=== PATIENT | male | born 1965 | race Caucasian/White ===

== ENCOUNTER 2020-06-09 11:52 | Outpatient (REF) | payer BC, SELFPAY | END 2020-06-09 11:53 | disposition home or self-care (01) | LOC: HO.LAB 11:52 | PROVIDERS: PCP Internal Medicine; Visit Provider Internal Medicine | DX: Z20.828 Contact with and (suspected) exposure to other viral communicable diseases (principal) | CPT/HCPCS: 87635 ==

== ENCOUNTER 2020-06-27 08:56 | Outpatient (REF) | payer BC, SELFPAY | END 2020-06-27 08:57 | disposition home or self-care (01) | LOC: HO.LAB 08:56 | PROVIDERS: PCP Internal Medicine; Visit Provider Internal Medicine | DX: Z20.828 Contact with and (suspected) exposure to other viral communicable diseases (principal) | CPT/HCPCS: U0003 ==

== ENCOUNTER 2020-09-29 06:04 | Outpatient (REF) | payer BC, SELFPAY ==
[2020-09-29 07:00] LABS: MANUAL DIFF FLAG NO
[2020-09-29 07:06] LABS: Glucose Urine UA NEG (NEG); Leukocyte Esterase Urine NEG (NEG); Nitrite Urine NEG (NEG); PH 5.5 (5.0-8.0); Specific Gravity - Urine >= 1.030 (1.005-1.025); Urine Blood NEG (NEG); Urine Ketones NEG (NEG); Urine Protein NEG (NEG-TRACE)
[2020-09-29 07:11] LABS: Appearance Urine CLEAR; Color Urine YELLOW
[2020-09-29 07:12] LABS: Basophils Percent Auto 0.6 % (0-2); Eosinophils Absolute Auto 0.2 X10*3/uL (0.0-0.4); Eosinophils Percent Auto 4.2 % (0-4); Hematocrit 40.7 % (42-52); Hemoglobin 13.5 g/dl (14.0-18.0); Imm Gran Abs Auto 0.02 X10*3/uL (0.00-0.03); Imm Gran Pct Auto 0.4 % (0.0-0.4); Lymphocytes Absolute Auto 1.7 X10*3/uL (1.2-4.9); Lymphocytes Percent Auto 33.4 % (20-40); Mean Corpuscular HGB Conc 33.2 g/dl (31.0-36.0); Mean Corpuscular Hemoglobin 29.9 pg (27.0-33.0); Mean Corpuscular Volume 90.2 fL (80-98); Mean Platelet Volume 9.4 fL (9.4-12.4); Monocytes Absolute Auto 0.4 X10*3/uL (0.1-1.2); Neutrophils Absolute Auto 2.7 X10*3/uL (2.0-8.3); Neutrophils Percent Auto 53.4 % (45-73); Platelet Count 328 X10*3/uL (160-400); Red Blood Count 4.51 X10*6/uL (4.60-5.80); Red Cell Distribution Width 11.9 % (11.0-16.0)
[2020-09-29 07:42] LABS: Alanine Aminotransferase 15 U/L (0-40); Albumin Level 4.5 g/dL (3.5-5.0); Alkaline Phosphatase 55 U/L (39-117); Anion Gap 12 (12-20); Aspartate Amino Transferase 14 U/L (5-37); Bilirubin Total 1.4 mg/dL (0.0-1.0); Blood Urea Nitrogen 16 mg/dL (9-16); Calcium 9.4 mg/dL (8.4-10.2); Carbon Dioxide 28 mmol/L (22-29); Chloride 106 mmol/L (96-108); Cholesterol 162 mg/dL; Estimated Glomerular Filt Rate > 60; Glucose Fasting 101 mg/dL (60-99); HDL Cholesterol 44 mg/dL; LDL Cholesterol Calculated 101 mg/dl; Potassium 4.8 mmol/L (3.3-5.1); Sodium 141 mmol/L (135-145); Total Protein 6.9 g/dL (6.5-8.0); Triglycerides 86 mg/dL
[2020-09-29 07:52] LABS: TSH reflex Free T4 3.09 uIU/mL (0.32-4.0)
[2020-09-29 08:42] LABS: SARS COV2 IgG Negative (Negative)
== END 2020-09-29 06:05 | disposition home or self-care (01) ==
LOC: HO.LAB 06:04
PROVIDERS: Visit Provider Internal Medicine
DX: E78.5 Hyperlipidemia, unspecified (principal); R73.01 Impaired fasting glucose; K80.20 Calculus of gallbladder without cholecystitis without obstruction; J45.909 Unspecified asthma, uncomplicated; K21.9 Gastro-esophageal reflux disease without esophagitis; N45.1 Epididymitis; E66.3 Overweight; Z01.84 Encounter for antibody response examination
CPT/HCPCS: 36415; 80053; 80061; 81003; 84443; 85025; 86769

== ENCOUNTER → 2020-10-19 09:18 | Outpatient (BNVA) | payer BC, SELFPAY | PROVIDERS: PCP Internal Medicine; Visit Provider Urology ==

== ENCOUNTER → 2020-11-02 10:09 | Outpatient (BNVA) | payer BC, SELFPAY | PROVIDERS: PCP Internal Medicine; Visit Provider Urology ==

== ENCOUNTER → 2020-12-02 15:23 | Outpatient (BNVA) | payer BC, SELFPAY | PROVIDERS: PCP Internal Medicine; Visit Provider Urology ==

== ENCOUNTER → 2021-01-04 15:20 | Outpatient (BNVA) | payer BC, SELFPAY | PROVIDERS: PCP Internal Medicine; Visit Provider Urology ==

== ENCOUNTER 2021-01-26 08:49 | Outpatient (REF) | payer BC, SELFPAY ==
[2021-01-26 09:34] LABS: MANUAL DIFF FLAG NO
[2021-01-26 10:04] LABS: Basophils Percent Auto 0.7 % (0-2); Eosinophils Absolute Auto 0.1 X10*3/uL (0.0-0.4); Eosinophils Percent Auto 2.2 % (0-4); Hematocrit 39.3 % (42-52); Hemoglobin 13.3 g/dl (14.0-18.0); Imm Gran Abs Auto 0.04 X10*3/uL (0.00-0.03); Imm Gran Pct Auto 0.7 % (0.0-0.4); Lymphocytes Absolute Auto 1.5 X10*3/uL (1.2-4.9); Lymphocytes Percent Auto 26.1 % (20-40); Mean Corpuscular HGB Conc 33.8 g/dl (31.0-36.0); Mean Corpuscular Hemoglobin 30.1 pg (27.0-33.0); Mean Corpuscular Volume 88.9 fL (80-98); Mean Platelet Volume 9.2 fL (9.4-12.4); Monocytes Absolute Auto 0.5 X10*3/uL (0.1-1.2); Monocytes Percent Auto 8.4 % (2-11); Neutrophils Absolute Auto 3.6 X10*3/uL (2.0-8.3); Neutrophils Percent Auto 61.9 % (45-73); Platelet Count 311 X10*3/uL (160-400); Red Blood Count 4.42 X10*6/uL (4.60-5.80); Red Cell Distribution Width 12.1 % (11.0-16.0); White Blood Count 5.8 X10*3/uL (4.8-10.8)
[2021-01-26 10:21] LABS: Alanine Aminotransferase 24 U/L (0-40); Albumin Level 4.4 g/dL (3.5-5.0); Alkaline Phosphatase 55 U/L (39-117); Anion Gap 11 (12-20); Aspartate Amino Transferase 18 U/L (5-37); Bilirubin Total 1.7 mg/dL (0.0-1.0); Blood Urea Nitrogen 15 mg/dL (9-16); Calcium 9.4 mg/dL (8.4-10.2); Carbon Dioxide 27 mmol/L (22-29); Chloride 106 mmol/L (96-108); Cholesterol 156 mg/dL; Estimated Glomerular Filt Rate > 60; Glucose Fasting 102 mg/dL (60-99); HDL Cholesterol 45 mg/dL; LDL Cholesterol Calculated 93 mg/dl; Potassium 4.5 mmol/L (3.3-5.1); Sodium 139 mmol/L (135-145); Total Protein 6.7 g/dL (6.5-8.0); Triglycerides 90 mg/dL
[2021-01-26 10:28] LABS: TSH reflex Free T4 2.26 uIU/mL (0.32-4.0)
== END 2021-01-26 08:50 | disposition home or self-care (01) ==
LOC: HO.LAB 08:49
PROVIDERS: PCP Internal Medicine; Visit Provider Internal Medicine
DX: E78.00 Pure hypercholesterolemia, unspecified (principal); R73.01 Impaired fasting glucose; I10 Essential (primary) hypertension
CPT/HCPCS: 36415; 80053; 80061; 84443; 85025

== ENCOUNTER 2021-05-29 11:20 | Outpatient (REF) | payer BC, SELFPAY ==
[2021-05-29 12:41] LABS: Influenza A PCR NEGATIVE (Negative); Influenza B PCR NEGATIVE (Negative); Resp Syncy Virus RNA Qual PCR NEGATIVE (Negative); SARS COV2 PCR INHOUSE NEGATIVE (Negative)
== END 2021-05-29 11:21 | disposition home or self-care (01) ==
LOC: HO.LNP 11:20
PROVIDERS: Visit Provider Family Medicine
DX: Z20.822 Contact with and (suspected) exposure to COVID-19 (principal); R09.81 Nasal congestion
CPT/HCPCS: 0241U

== ENCOUNTER 2021-06-28 06:46 | Outpatient (REF) | payer BC, SELFPAY ==
[2021-06-28 08:11] LABS: Alanine Aminotransferase 22 U/L (0-40); Albumin Level 4.6 g/dL (3.5-5.0); Alkaline Phosphatase 66 U/L (39-117); Anion Gap 10 (12-20); Aspartate Amino Transferase 16 U/L (5-37); Bilirubin Total 1.5 mg/dL (0.0-1.0); Blood Urea Nitrogen 16 mg/dL (9-16); Calcium 9.5 mg/dL (8.4-10.2); Carbon Dioxide 28 mmol/L (22-29); Chloride 105 mmol/L (96-108); Cholesterol 175 mg/dL; Estimated Glomerular Filt Rate > 60; Glucose Fasting 107 mg/dL (60-99); HDL Cholesterol 45 mg/dL; LDL Cholesterol Calculated 107 mg/dl; Potassium 4.2 mmol/L (3.3-5.1); Sodium 139 mmol/L (135-145); Triglycerides 118 mg/dL
[2021-06-28 08:35] LABS: Prostate Specific Antigen 0.27 ng/mL (<0.05-4.0)
== END 2021-06-28 06:47 | disposition home or self-care (01) ==
LOC: HO.LAB 06:46
PROVIDERS: PCP Internal Medicine; Visit Provider Internal Medicine
DX: Z12.5 Encounter for screening for malignant neoplasm of prostate (principal); N40.0 Benign prostatic hyperplasia without lower urinary tract symptoms; E78.00 Pure hypercholesterolemia, unspecified
CPT/HCPCS: 36415; 80053; 80061; 84153

== ENCOUNTER → 2021-07-14 09:58 | Outpatient (BNVA) | payer BC, SELFPAY | PROVIDERS: PCP Internal Medicine; Visit Provider Urology ==

== ENCOUNTER 2021-11-03 06:41 | Outpatient (REF) | payer BC, SELFPAY ==
[2021-11-03 07:16] LABS: MANUAL DIFF FLAG NO
[2021-11-03 07:33] LABS: Appearance Urine CLEAR; Color Urine YELLOW; Glucose Urine UA NEG (NEG); Leukocyte Esterase Urine NEG (NEG); Nitrite Urine NEG (NEG); PH 5.5 (5.0-8.0); Specific Gravity - Urine >= 1.030 (1.005-1.025); Urine Blood NEG (NEG); Urine Ketones NEG (NEG); Urine Protein NEG (NEG-TRACE)
[2021-11-03 07:36] LABS: Basophils Percent Auto 0.5 % (0-2); Eosinophils Absolute Auto 0.2 X10*3/uL (0.0-0.4); Eosinophils Percent Auto 3.6 % (0-4); Hematocrit 43.9 % (42.0-52.0); Hemoglobin 14.3 g/dl (14.0-18.0); Imm Gran Abs Auto 0.04 X10*3/uL (0.00-0.03); Imm Gran Pct Auto 0.7 % (0.0-0.4); Immature Retic Fraction 12.6 % (2.3-13.4); Lymphocytes Absolute Auto 1.9 X10*3/uL (1.2-4.9); Lymphocytes Percent Auto 32.3 % (20-40); Mean Corpuscular HGB Conc 32.6 g/dl (31.0-36.0); Mean Corpuscular Hemoglobin 29.2 pg (27.0-33.0); Mean Corpuscular Volume 89.6 fL (80.0-98.0); Mean Platelet Volume 9.5 fL (9.4-12.4); Monocytes Absolute Auto 0.5 X10*3/uL (0.1-1.2); Monocytes Percent Auto 8.1 % (2-11); Neutrophils Absolute Auto 3.2 x10*3/uL (2.0-8.3); Neutrophils Percent Auto 54.8 % (45-73); Platelet Count 329 X10*3/uL (160-400); Red Cell Distribution Width 12.1 % (11.0-16.0); Retic HGB Equivalent 33.3 pg (30.0-35.0); Reticulocyte Percent 3.2 % (0.5-1.8); Reticulocytes Absolute 0.157 X10*6/uL (0.026-0.095); White Blood Count 5.9 X10*3/uL (4.8-10.8)
[2021-11-03 07:59] LABS: Alanine Aminotransferase 17 U/L (0-40); Albumin Level 4.6 g/dL (3.5-5.0); Alkaline Phosphatase 53 U/L (39-117); Anion Gap 12 (12-20); Aspartate Amino Transferase 17 U/L (5-37); Bilirubin Total 1.4 mg/dL (0.0-1.0); Blood Urea Nitrogen 22 mg/dL (9-16); Calcium 9.7 mg/dL (8.4-10.2); Carbon Dioxide 25 mmol/L (22-29); Chloride 106 mmol/L (96-108); Cholesterol 165 mg/dL; Estimated Glomerular Filt Rate > 60; Glucose Fasting 110 mg/dL (60-99); HDL Cholesterol 42 mg/dL; Iron 104 mcg/dL (45-160); LDL Cholesterol Calculated 103 mg/dl; Percent Iron Saturation 32 % (15-50); Potassium 4.9 mmol/L (3.3-5.1); Sodium 138 mmol/L (135-145); Total Iron Binding Capacity 323 mcg/dL (228-428); Total Protein 7.3 g/dL (6.5-8.0); Triglycerides 103 mg/dL; Unsaturated Iron Binding 219 ug/dL
[2021-11-03 08:13] LABS: Prostate Specific Antigen 0.29 ng/mL (<0.05-4.0); TSH reflex Free T4 2.82 uIU/mL (0.32-4.0); Vitamin D 25-OH Total 37.8 ng/mL (>30)
== END 2021-11-03 06:42 | disposition home or self-care (01) ==
LOC: HO.LAB 06:41
PROVIDERS: Urology; PCP Internal Medicine; Visit Provider Internal Medicine
DX: Z12.5 Encounter for screening for malignant neoplasm of prostate (principal); E78.00 Pure hypercholesterolemia, unspecified; E55.9 Vitamin D deficiency, unspecified; I10 Essential (primary) hypertension; D50.9 Iron deficiency anemia, unspecified; N13.8 Other obstructive and reflux uropathy; N40.1 Benign prostatic hyperplasia with lower urinary tract symptoms; N41.1 Chronic prostatitis
CPT/HCPCS: 36415; 80053; 80061; 81003; 82306; 83540; 84153; 84443; 85025; 85045

== ENCOUNTER 2022-07-03 06:27 | Outpatient (REF) | payer BC, SELFPAY ==
[2022-07-03 06:36] LABS: MANUAL DIFF FLAG NO
[2022-07-03 07:31] LABS: Basophils Absolute Auto 0.1 X10*3/uL (0.0-0.2); Basophils Percent Auto 0.6 % (0-2); Eosinophils Absolute Auto 0.2 X10*3/uL (0.0-0.4); Hematocrit 42.6 % (42.0-52.0); Hemoglobin 13.7 g/dl (14.0-18.0); Imm Gran Abs Auto 0.09 X10*3/uL (0.00-0.03); Imm Gran Pct Auto 1.1 % (0.0-0.4); Lymphocytes Absolute Auto 2.3 X10*3/uL (1.2-4.9); Lymphocytes Percent Auto 27.7 % (20-40); Mean Corpuscular HGB Conc 32.2 g/dl (31.0-36.0); Mean Corpuscular Hemoglobin 29.5 pg (27.0-33.0); Mean Corpuscular Volume 91.6 fL (80.0-98.0); Mean Platelet Volume 9.3 fL (9.4-12.4); Monocytes Absolute Auto 0.6 X10*3/uL (0.1-1.2); Monocytes Percent Auto 7.9 % (2-11); Neutrophils Absolute Auto 4.8 x10*3/uL (2.0-8.3); Neutrophils Percent Auto 59.7 % (45-73); Platelet Count 334 X10*3/uL (160-400); Red Blood Count 4.65 X10*6/uL (4.60-5.80); Red Cell Distribution Width 12.2 % (11.0-16.0); White Blood Count 8.1 X10*3/uL (4.8-10.8)
[2022-07-03 08:02] LABS: Appearance Urine Clear; Color Urine Yellow; Glucose Urine UA Negative (Negative); Leukocyte Esterase Urine Negative (Negative); Nitrite Urine Negative (Negative); PH 5.5 (5.0-9.0); Specific Gravity - Urine >= 1.030 (1.005-1.025); Urine Blood Negative (Negative); Urine Ketones Negative (Negative); Urine Protein Negative (Neg-Trace)
[2022-07-03 10:34] LABS: Hemoglobin A1c % 5.2 %
[2022-07-03 10:35] LABS: Estimated Average Glucose 103 mg/dL
[2022-07-03 11:18] LABS: Alanine Aminotransferase 20 U/L (0-40); Albumin Level 4.5 g/dL (3.5-5.0); Alkaline Phosphatase 64 U/L (39-117); Anion Gap 16 (12-20); Aspartate Amino Transferase 17 U/L (5-37); Bilirubin Total 1.1 mg/dL (0.0-1.0); Blood Urea Nitrogen 19 mg/dL (9-16); Calcium 8.8 mg/dL (8.4-10.2); Carbon Dioxide 23 mmol/L (22-29); Chloride 107 mmol/L (96-108); Cholesterol 172 mg/dL; Estimated Glomerular Filt Rate > 60; HDL Cholesterol 45 mg/dL; LDL Cholesterol Calculated 106 mg/dl; Potassium 4.1 mmol/L (3.3-5.1); Sodium 142 mmol/L (135-145); Total Protein 7.1 g/dL (6.5-8.0); Triglycerides 108 mg/dL
[2022-07-03 11:40] LABS: TSH reflex Free T4 3.26 uIU/mL (0.32-4.0); Vitamin D 25-OH Total 30.9 ng/mL (>30)
[2022-07-03 12:43] LABS: Glucose Fasting 100 mg/dL (60-99)
== END 2022-07-03 06:28 | disposition home or self-care (01) ==
LOC: HO.LAB 06:27
PROVIDERS: PCP Internal Medicine; Visit Provider Internal Medicine
DX: E55.9 Vitamin D deficiency, unspecified (principal); R30.0 Dysuria; E78.00 Pure hypercholesterolemia, unspecified; R73.01 Impaired fasting glucose; I10 Essential (primary) hypertension
CPT/HCPCS: 36415; 80053; 80061; 81003; 82306; 83036; 84443; 85025

== ENCOUNTER 2022-07-04 16:26 | Outpatient (REF) | payer BC, SELFPAY ==
--- NOTE | ~2022-07-04 | XR_ITS ---
EXAMINATION: XR CHEST CLINICAL INFORMATION: Other specified symptoms in size involving the circulatory system. COMPARISON: None TECHNIQUE: 2 views of the chest were obtained. FINDINGS: No significant abnormality is noted involving the heart, lungs, mediastinum, bony thorax or soft tissues. XR/XR chest 2V IMPRESSION: Unremarkable examination.
== END 2022-07-04 16:27 | disposition home or self-care (01) ==
LOC: HO.XRAY 16:26
PROVIDERS: Visit Provider Internal Medicine
DX: R05.9 Cough, unspecified (principal); R09.89 Other specified symptoms and signs involving the circulatory and respiratory systems
CPT/HCPCS: 71046

== ENCOUNTER 2022-10-25 09:51 | Outpatient (REF) | payer BC, SELFPAY ==
[2022-10-25 10:39] LABS: Appearance Urine Clear; Color Urine Yellow; Glucose Urine UA Negative (Negative); Leukocyte Esterase Urine Negative (Negative); Nitrite Urine Negative (Negative); PH 5.5 (5.0-9.0); Specific Gravity - Urine 1.025 (1.005-1.025); Urine Blood Negative (Negative); Urine Ketones Trace mg/dL (Negative); Urine Protein Negative (Neg-Trace)
[2022-10-25 11:29] LABS: Alanine Aminotransferase 18 U/L (0-40); Albumin Level 4.4 g/dL (3.5-5.0); Alkaline Phosphatase 61 U/L (39-117); Anion Gap 11 (12-20); Aspartate Amino Transferase 15 U/L (5-37); Bilirubin Total 1.6 mg/dL (0.0-1.0); Blood Urea Nitrogen 13 mg/dL (9-16); Calcium 9.2 mg/dL (8.4-10.2); Carbon Dioxide 28 mmol/L (22-29); Chloride 106 mmol/L (96-108); Cholesterol 170 mg/dL; Estimated Glomerular Filt Rate > 60; Glucose Fasting 100 mg/dL (60-99); HDL Cholesterol 44 mg/dL; LDL Cholesterol Calculated 106 mg/dl; Potassium 4.9 mmol/L (3.3-5.1); Sodium 140 mmol/L (135-145); Total Protein 6.7 g/dL (6.5-8.0); Triglycerides 103 mg/dL
[2022-10-25 11:36] LABS: Vitamin D 25-OH Total 33.1 ng/mL (>30)
[2022-11-02 16:44] LABS: Testosterone, Free 55.4 pg/mL (35.0-155.0); Testosterone, Total 495 ng/dL (250-1100)
== END 2022-10-25 09:52 | disposition home or self-care (01) ==
LOC: HO.LAB 09:51
PROVIDERS: PCP Internal Medicine; Visit Provider Internal Medicine
DX: E78.00 Pure hypercholesterolemia, unspecified (principal); R30.0 Dysuria; E55.9 Vitamin D deficiency, unspecified; N52.9 Male erectile dysfunction, unspecified
CPT/HCPCS: 36415; 80053; 80061; 81003; 82306; 84402; 84403; 84443

== ENCOUNTER 2023-11-15 08:45 | Outpatient (REF) | payer BC, SELFPAY ==
[2023-11-15 08:57] LABS: MANUAL DIFF FLAG NO
[2023-11-15 09:36] LABS: Basophils Absolute Auto 0.1 X10*3/uL (0.0-0.2); Basophils Percent Auto 0.7 % (0-2); Eosinophils Absolute Auto 0.2 X10*3/uL (0.0-0.4); Eosinophils Percent Auto 2.4 % (0-4); Hematocrit 43.8 % (42.0-52.0); Hemoglobin 14.6 g/dl (14.0-18.0); Imm Gran Abs Auto 0.11 X10*3/uL (0.00-0.03); Imm Gran Pct Auto 1.5 % (0.0-0.4); Lymphocytes Absolute Auto 2.1 X10*3/uL (1.2-4.9); Lymphocytes Percent Auto 28.9 % (20-40); Mean Corpuscular HGB Conc 33.3 g/dl (31.0-36.0); Mean Corpuscular Hemoglobin 29.6 pg (27.0-33.0); Mean Corpuscular Volume 88.7 fL (80.0-98.0); Mean Platelet Volume 8.8 fL (9.4-12.4); Monocytes Absolute Auto 0.5 X10*3/uL (0.1-1.2); Monocytes Percent Auto 6.8 % (2-11); Neutrophils Absolute Auto 4.4 x10*3/uL (2.0-8.3); Neutrophils Percent Auto 59.7 % (45-73); Platelet Count 373 X10*3/uL (160-400); Red Blood Count 4.94 X10*6/uL (4.60-5.80); Red Cell Distribution Width 12.2 % (11.0-16.0); White Blood Count 7.4 X10*3/uL (4.8-10.8)
[2023-11-15 10:10] LABS: Alanine Aminotransferase 23 U/L (0-40); Albumin Level 4.6 g/dL (3.5-5.0); Alkaline Phosphatase 73 U/L (39-117); Anion Gap 10 (12-20); Aspartate Amino Transferase 17 U/L (5-37); Bilirubin Total 1.1 mg/dL (0.0-1.0); Blood Urea Nitrogen 15 mg/dL (9-16); Calcium 9.8 mg/dL (8.4-10.2); Carbon Dioxide 30 mmol/L (22-29); Chloride 105 mmol/L (96-108); Cholesterol 167 mg/dL (<200); Estimated Glomerular Filt Rate > 60; Glucose Fasting 103 mg/dL (60-99); HDL Cholesterol 39 mg/dL (>40); LDL Cholesterol Calculated 102 mg/dL (<100); Potassium 4.3 mmol/L (3.3-5.1); Sodium 141 mmol/L (135-145); Total Protein 7.5 g/dL (6.5-8.0); Triglycerides 134 mg/dL (<150)
[2023-11-15 10:27] LABS: Vitamin D 25-OH Total 36.1 ng/mL (>30)
== END 2023-11-15 08:46 | disposition home or self-care (01) ==
LOC: HO.LAB 08:45
PROVIDERS: PCP Internal Medicine; Visit Provider Internal Medicine
DX: J45.909 Unspecified asthma, uncomplicated (principal); D64.9 Anemia, unspecified; E78.00 Pure hypercholesterolemia, unspecified; I10 Essential (primary) hypertension; E55.9 Vitamin D deficiency, unspecified
CPT/HCPCS: 36415; 80053; 80061; 82306; 85025

== ENCOUNTER 2023-11-18 15:49 | Outpatient (AMB) | payer BC, SELFPAY ==
--- NOTE | 2023-11-18 15:53 | MHC.PC.OV ---
Vital Signs 11/18/23 15:55 Height 5 ft 7 in Weight 173 lb BMI 27.1 BP 120/78 Blood Pressure Location Lt brachial Position Sitting Pulse 58 Pulse Source Pulse Oximeter Pulse Oximetry (%) 96 Oxygen Delivery Method Room Air Intake Visit Reasons: hyperlipidemia Intake Note: Patient is here to follow up on Hperlipidemia, HTN, IFG. 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 Accompanied by: Self / Same As Patient Allergies No Known Allergies Allergy (Verified 11/18/23 16:32) Medication List - Last Reconciled 11/18/23 by Jamal Landa MD atorvastatin 20 mg PO DAILY budesonide-formoterol 80-4.5 mcg/actuation 2 puffs PO BID cholecalciferol (vitamin D3) 50 mcg PO DAILY 90 days omeprazole 20 mg PO DAILY Tobacco use date assessed: 11/18/23 Dental Screening Dental Screen Date: 11/18/23 Did you have a dental visit in the last 12 months?: No Did you have a dental problem in the last 6 months where you did not have access to dental care?: No Was dental information given to patient?: Patient has dentist HPI hyperlipidemia HPI Details Patient comes in today for his follow up visit States that he feels okay Denies any headaches or dizziness Denies any chest pains, no SOB No nausea/vomiting, no abdominal pain No change in bowel habits noted Had his follow up labs done a few days ago - to discuss his results [facility] Medical History Erectile dysfunction Vitamin D deficiency Bojorquez's esophagus Normal colonoscopy (~09/26/16) Rupture of left kidney (~1981) Depression Asthma Overweight (BMI 25.0-29.9) Testicular discomfort Pure hypercholesterolemia Benign essential hypertension Impaired fasting glucose Surgical History History of esophagogastroduodenoscopy (EGD) History of appendectomy History of ear surgery Social History Housing: House Alcohol intake: current Alcohol intake frequency: a few times a week Patient Tobacco Use Status: Never used Tobacco e-Cigarette/Vaping Use: Never Used Second Hand Smoke Exposure: Yes service: No Current occupational status: employed Cognitive needs: No Hearing needs: No Vision needs: Yes (Reading Glasses) Questionnaire PHQ-9 Over the last 2 weeks, how often have you been bothered by any of the following problems? 1. Little interest or pleasure in doing things: not at all 2. Feeling down, depressed, or hopeless: not at all 3. Trouble falling or staying asleep, or sleeping too much: not at all 4. Feeling tired or having little energy: not at all 5. Poor appetite or overeating: not at all 6. Feeling bad about yourself - or that you are a failure or have let yourself or your family down: not at all 7. Trouble concentrating on things, such as reading the newspaper or watching television: not at all 8. Moving or speaking so slowly that other people could have noticed. Or the opposite - being so fidgety or restless that you have been moving around a lot more than usual: not at all 9. Thoughts that you would be better off or of hurting yourself in some way: not at all Total score: 0 Depression Screening Interpretation: Negative Depression Screening Done: Yes 49669 - PHQ-9 Billing: Yes Source: Developed by Drs. Angel Cortez, Nitza Langford, Javier Leal and colleagues, with an educational bernarda from [employer]. Thrive Questionnaire Date Thrive assessed: 11/18/23 I am a: Patient What is your living situation today?: I have a steady place to live Within the past 12 months, did the food you bought not last and you didn't have the money to get more?: Never true Within the past 12 months, did you worry whether your food would run out before you got money to buy more?: Never true Do you have trouble paying for medicines?: No Do you have trouble getting transportation to medical appointments?: No Do you have trouble paying your heating and electricity bill?: No Do you have trouble taking care of your child, family member or friend?: No Do you have trouble with day-to-day activities such as bathing, preparing meals, shopping, managing finances, etc.?: No Are you currently unemployed and looking for a job?: No Are you interested in more education?: No Currently or been in a relationship where the following occur: no concerns reported THRIVE Score: 0 AUDIT C Alcohol Use Questionnaire (AUDIT-C) 1. How often do you have a drink containing alcohol?: Monthly or less 2. How many drinks containing alcohol do you have on a typical day when you are drinking?: 1 or 2 Total Score: 1 Score Reviewed/Action Taken: Yes QUE-7 AMB Questionnaire QUE-7 Date QUE - 7 assessed: 11/18/23 Feeling nervous, anxious, or on edge: 0 = Not at all Not being able to stop or control worryin = Not at all Worrying too much about different things: 0 = Not at all Trouble relaxin = Not at all Being so restless that it is hard to sit still: 0 = Not at all Becoming easily annoyed or irritable: 0 = Not at all Feeling afraid as if something awful might happen: 0 = Not at all Total QUE-7 score (0-4 normal; 5-9 mild; 10-14 moderate; 15-21 severe): 0 Source: Developed by Drs. Angel Cortez, Nitza Langford, Javier Leal and colleagues, with an educational bernarda from [employer]. Review of Systems Const Denies fatigue, Denies fever(s) and Denies headache(s) ENT Denies dysphagia, Denies dizziness, Denies otalgia, Denies headache(s), Denies odynophagia and Denies sore throat Card Denies chest pain, Denies palpitations and Denies dyspnea Resp Denies cough and Denies dyspnea GI Denies abdominal pain, Denies constipation, Denies dysphagia, Denies heartburn, Denies diarrhea, Denies nausea, Denies odynophagia and Denies vomiting Denies dysuria, Denies nocturia and Denies urinary frequency Musc Reports arthralgias (occasionally, in the knees) Skin/Breast Denies rash Neuro Denies dizziness and Denies headache(s) Endo Denies fatigue and Denies palpitations Physical exam (Primary Care) Vital Signs: Last Vital Signs Pulse 58 11/18/23 15:55 BP 120/78 11/18/23 15:55 Pulse Ox 96 11/18/23 15:55 Oxygen Delivery Method Room Air 11/18/23 15:55 BMI result Body Mass Index 27.1 Tobacco/Smoking Status: Tobacco use Status Tobacco use date assessed 11/18/23 11/18/23 16:03 Patient Tobacco Use Status Never used Tobacco 11/18/23 16:03 e-Cigarette/Vaping Use Never Used 11/18/23 16:03 PHQ-9: PHQ-9 Score PHQ-9: Total score 0 11/18/23 16:13 Depression Screening Interpretation: Negative Thrive Assessment: Date of Thrive Assessment Date Thrive assessed 11/18/23 11/18/23 16:03 Currently or been in a relationship where the following occur: no concerns reported Const General: no acute distress and alert HENMT Ears: TM's normal bilaterally and EAC's normal Throat: Yes posterior oropharynx normal and Yes tonsils normal (no TP congestion noted) Neck Neck: Yes no lymphadenopathy and Yes supple Thyroid: Thyroid normal Resp Auscultation: clear to auscultation bilaterally, no rales and no wheezes Cardio Rate: regular rate Rhythm: regular rhythm Heart sounds: no murmurs GI Palpation (GI): Soft to palpation and nontender Auscultation: normal bowel sounds General: Yes no CVA tenderness Back/Spine/Pelvis Back: no CVA tenderness Thoracic/Lumbar Spine: No lumbar spinal tenderness Skin Rashes: no rashes Extrem General: Yes no clubbing, cyanosis or edema Results AMB Hemoglobin A1c AMB Hemoglobin A1c 5.4 % Last Edit by ULISES Gunter on 11/18/23 16:14 Results Reviewed Results Reviewed: Laboratory Last Values Hgb A1c (Clinic) 5.4 % (4.0-6.0) 11/18/23 15:52 Laboratory Tests 11/15/23 11/15/23 11/18/23 08:56 08:56 15:52 WBC 7.4 Hgb 14.6 Hct 43.8 Plt Count 373 Sodium 141 Potassium 4.3 Creatinine 0.82 Estimated GFR > 60 Fasting Glucose 103 H Hgb A1c (Clinic) 5.4 Calcium 9.8 D AST 17 ALT 23 Triglycerides 134 Cholesterol 167 LDL Cholesterol, Calc 102 H HDL Cholesterol 39 L 25-OH Vitamin D Total 36.1 Assessment and Plan Assessment & Plan (1) Pure hypercholesterolemia: Code(s): E78.00 - Pure hypercholesterolemia, unspecified Plan: Results of his labs done a few days ago reviewed and discussed with patient Reinforced low cholesterol diet Continue Atorvastatin 20 mg QD Will recheck his labs and fasting lipids in 4 months for follow up (2) Benign essential hypertension: Code(s): I10 - Essential (primary) hypertension Plan: Reinforced low sodium diet - goal is systolic BP of 120 mm or less (3) Impaired fasting glucose: Code(s): R73.01 - Impaired fasting glucose Plan: In-office HgbA1c done today is at 5.4%; HgbA1c was normal at 5.2% when checked previously Reinforced low calorie diet/exercise as tolerated (4) Bojorquez's esophagus: Code(s): K22.70 - Bojorquez's esophagus without dysplasia Qualifiers: Bojorquez's esophagus type: without dysplasia Qualified Code(s): K22.70 - Bojorquez's esophagus without dysplasia Plan: EGD with biopsy done on 09/26/2016 and 02/22/[address] Cortés He was seen for follow up in May [address] Cortés and was advised to double up on his Omeprazole to 40 mg QD; he eventually underwent repeat EGD in January 2023, which came out negative Colonoscopy is not due until [address] Cortés as scheduled (5) Mild anemia: Code(s): D64.9 - Anemia, unspecified Plan: Anemia work ups done previously all came out normal Will continue to monitor his CBC regularly - will recheck CBC in 4 months for follow up (6) Asthma: Code(s): J45.909 - Unspecified asthma, uncomplicated Qualifiers: Asthma severity: mild Asthma persistence: persistent Asthma complication type: uncomplicated Qualified Code(s): J45.30 - Mild persistent asthma, uncomplicated Plan: Stable Chest x-rays done last year to evaluate his recurrent coughing back then came out normal; his cough has since resolved Continue Symbicort 80-4.5 mcg 2 inhalations BID and Albuterol HFA 2 puffs 4 times a day as needed (7) Vitamin D deficiency: Code(s): E55.9 - Vitamin D deficiency, unspecified Plan: Continue Vitamin D3 2000 units QD (8) Erectile dysfunction: Code(s): N52.9 - Male erectile dysfunction, unspecified Qualifiers: Erectile dysfunction type: unspecified Qualified Code(s): N52.9 - Male erectile dysfunction, unspecified Plan: Continue Tadalafil 5 mg QD PRN Testosterone level checked last year came back normal (9) Overweight (BMI 25.0-29.9): Code(s): E66.3 - Overweight Plan: Reinforced diet/exercise as tolerated/lose weight Plan Follow up with 4 months Orders: Orders Complete Blood Count Auto Diff 11/15/23 D64.9 - Anemia, unspecified, E78.00 - Pure hypercholesterolemia, unspecified, J45.909 - Unspecified asthma, uncomplicated Comprehensive [place]. Panel Fast 11/15/23 D64.9 - Anemia, unspecified, E78.00 - Pure hypercholesterolemia, unspecified, I10 - Essential (primary) hypertension, J45.909 - Unspecified asthma, uncomplicated Vitamin D 25-OH Total 11/15/23 E55.9 - Vitamin D deficiency, unspecified AMB Hemoglobin A1c Today R73.01 - Impaired fasting glucose Vitamin D 25-OH Total 4 Months E55.9 - Vitamin D deficiency, unspecified Lipid Panel 11/15/23 E78.00 - Pure hypercholesterolemia, unspecified Complete Blood Count Auto Diff 4 Months D64.9 - Anemia, unspecified Comprehensive [place]. Panel Fast 4 Months E78.00 - Pure hypercholesterolemia, unspecified Lipid Panel 4 Months E78.00 - Pure hypercholesterolemia, unspecified TSH reflex Free T4 4 Months E78.00 - Pure hypercholesterolemia, unspecified UA CC w/rflx Micro + Cult 4 Months R30.0 - Dysuria Coding Level of Care Code Est Pt Level 4 (70365) Diagnoses Pure hypercholesterolemia E78.00 Benign essential hypertension I10 Impaired fasting glucose R73.01 Bojorquez's esophagus without dysplasia K22.70 Bojorquez's esophagus type: without dysplasia Mild anemia D64.9 Mild persistent asthma without complication J45.30 Asthma severity: mild Asthma persistence: persistent Asthma complication type: uncomplicated Vitamin D deficiency E55.9 Erectile dysfunction, unspecified erectile dysfunction type N52.9 Erectile dysfunction type: unspecified Overweight (BMI 25.0-29.9) E66.3
[2023-11-18 15:55] VITALS: BP 120/78; PULSE 58; O2SAT 96; BMI 27.1
== END 2023-11-18 16:43 | disposition home or self-care (01) ==
PROVIDERS: PCP Internal Medicine; Visit Provider Internal Medicine
DX: E78.00 Pure hypercholesterolemia, unspecified (principal); I10 Essential (primary) hypertension; R73.01 Impaired fasting glucose; K22.70 Barrett's esophagus without dysplasia; D64.9 Anemia, unspecified; J45.30 Mild persistent asthma, uncomplicated; E55.9 Vitamin D deficiency, unspecified; N52.9 Male erectile dysfunction, unspecified; E66.3 Overweight
CPT/HCPCS: 83036; 99214

== ENCOUNTER 2024-03-18 06:19 | Outpatient (REF) | payer BC, SELFPAY ==
[2024-03-18 06:32] LABS: MANUAL DIFF FLAG NO
[2024-03-18 07:10] LABS: Basophils Absolute Auto 0.1 X10*3/uL (0.0-0.2); Eosinophils Absolute Auto 0.3 X10*3/uL (0.0-0.4); Eosinophils Percent Auto 3.8 % (0-4); Hematocrit 42.2 % (42.0-52.0); Hemoglobin 14.2 g/dl (14.0-18.0); Imm Gran Abs Auto 0.07 X10*3/uL (0.00-0.03); Lymphocytes Absolute Auto 2.2 X10*3/uL (1.2-4.9); Lymphocytes Percent Auto 32.1 % (20-40); Mean Corpuscular HGB Conc 33.6 g/dl (31.0-36.0); Mean Corpuscular Hemoglobin 30.2 pg (27.0-33.0); Mean Corpuscular Volume 89.8 fL (80.0-98.0); Mean Platelet Volume 9.1 fL (9.4-12.4); Monocytes Absolute Auto 0.6 X10*3/uL (0.1-1.2); Monocytes Percent Auto 8.2 % (2-11); Neutrophils Absolute Auto 3.7 x10*3/uL (2.0-8.3); Neutrophils Percent Auto 53.9 % (45-73); Platelet Count 298 X10*3/uL (160-400); Red Cell Distribution Width 12.2 % (11.0-16.0); White Blood Count 6.8 X10*3/uL (4.8-10.8)
[2024-03-18 07:38] LABS: Alanine Aminotransferase 20 U/L (0-40); Albumin Level 4.5 g/dL (3.5-5.0); Alkaline Phosphatase 57 U/L (39-117); Anion Gap 13 (12-20); Aspartate Amino Transferase 13 U/L (5-37); Bilirubin Total 1.2 mg/dL (0.0-1.0); Blood Urea Nitrogen 18 mg/dL (9-16); Calcium 9.8 mg/dL (8.4-10.2); Carbon Dioxide 26 mmol/L (22-29); Chloride 108 mmol/L (96-108); Cholesterol 171 mg/dL (<200); Estimated Glomerular Filt Rate > 60; Glucose Fasting 108 mg/dL (60-99); HDL Cholesterol 44 mg/dL (>40); LDL Cholesterol Calculated 91 mg/dL (<100); Potassium 4.3 mmol/L (3.3-5.1); Sodium 143 mmol/L (135-145); Total Protein 7.1 g/dL (6.5-8.0); Triglycerides 184 mg/dL (<150)
[2024-03-18 07:55] LABS: TSH reflex Free T4 4.19 uIU/mL (0.32-4.0); Vitamin D 25-OH Total 43.7 ng/mL (>30)
[2024-03-18 08:24] LABS: Appearance Urine Clear; Color Urine Yellow; Glucose Urine UA Negative (Negative); Leukocyte Esterase Urine Negative (Negative); Nitrite Urine Negative (Negative); PH 5.5 (5.0-9.0); Specific Gravity - Urine >= 1.030 (1.005-1.025); Urine Blood Negative (Negative); Urine Ketones Negative (Negative); Urine Protein Negative (Neg-Trace)
[2024-03-18 09:07] LABS: Free T4 (Free Thyroxine) 0.73 ng/dL (0.71-1.85)
== END 2024-03-18 06:20 | disposition home or self-care (01) ==
LOC: HO.LAB 06:19
PROVIDERS: PCP Internal Medicine; Visit Provider Internal Medicine
DX: E55.9 Vitamin D deficiency, unspecified (principal); E78.00 Pure hypercholesterolemia, unspecified; D64.9 Anemia, unspecified; R30.0 Dysuria
CPT/HCPCS: 36415; 80053; 80061; 81003; 82306; 84439; 84443; 85025

== ENCOUNTER 2024-03-20 15:21 | Outpatient (AMB) | payer BC, SELFPAY ==
--- NOTE | 2024-03-20 15:22 | A.OFFPC_ITS ---
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 Accompanied by: Self / Same As Patient Allergies No Known Allergies Allergy (Verified 03/20/24 15:57) Medication List - Last Reconciled 03/20/24 by Jamal Landa MD atorvastatin 20 mg PO DAILY budesonide-formoterol 80-4.5 mcg/actuation 2 puffs PO BID cholecalciferol (vitamin D3) 50 mcg PO DAILY 90 days omeprazole 20 mg PO DAILY Tobacco use date assessed: 11/18/23 Dental Screening Dental Screen Date: 11/18/23 HPI hyperlipidemia, Bojorquez's, asthma, IFG HPI Details Patient comes in today for his follow up visit States that he feels okay Notes that for the past year or so, he has been experiencing on and off headaches - states that when he gets the headaches, it sometimes takes a while (occasionally days) before they will go away - he has not been able to figure out anything in particular that would cause or trigger these headaches Adds that when he has the headaches and he bends down to pick something up, he would then experience a significant increase in his headaches and states that it would feel like something is pounding in his head He denies any associated dizziness, blurring of vision or nausea/vomiting with his headaches He denies any chest pains, no SOB No nausea/vomiting, no abdominal pain No change in bowel habits noted He had his follow up labs done a couple of days ago - to discuss his results [facility] Medical History Erectile dysfunction Vitamin D deficiency Bojorquez's esophagus Normal colonoscopy (~09/26/16) Rupture of left kidney (~1981) Depression Asthma Overweight (BMI 25.0-29.9) Testicular discomfort Pure hypercholesterolemia Benign essential hypertension Impaired fasting glucose Surgical History History of esophagogastroduodenoscopy (EGD) History of appendectomy History of ear surgery Social History Housing: House Alcohol intake: current Alcohol intake frequency: a few times a week Patient Tobacco Use Status: Never used Tobacco e-Cigarette/Vaping Use: Never Used Second Hand Smoke Exposure: Yes service: No Current occupational status: employed Cognitive needs: No Hearing needs: No Vision needs: Yes (Reading Glasses) Questionnaire Thrive Questionnaire Date Thrive assessed: 11/18/23 QUE-7 AMB Questionnaire QUE-7 Date QUE - 7 assessed: 11/18/23 Source: Developed by Drs. Angel Cortez, Nitza Langford, Javier Leal and colleagues, with an educational bernarda from [employer]. Review of Systems Const Denies chills, Denies fatigue, Denies fever(s) and Reports headache(s) (recurrent - see HPI) Eyes Denies blurry vision and Denies diplopia ENT Denies dysphagia, Denies dizziness, Denies otalgia, Reports headache(s) (recurrent - see HPI), Denies neck pain, Denies odynophagia and Denies sore throat Card Denies chest pain, Denies palpitations and Denies dyspnea Resp Denies cough and Denies dyspnea GI Denies abdominal pain, Denies constipation, Denies dysphagia, Denies heartburn, Denies diarrhea, Denies nausea, Denies odynophagia and Denies vomiting Denies dysuria, Denies nocturia and Denies urinary frequency Musc Denies back pain, Reports arthralgias (occasionally, in the knees) and Denies neck pain Skin/Breast Denies rash Neuro Denies dizziness and Reports headache(s) (recurrent - see HPI) Endo Denies fatigue and Denies palpitations Physical exam (Primary Care) Vital Signs: Last Vital Signs Pulse 65 03/20/24 15:25 BP 122/76 03/20/24 15:25 Pulse Ox 95 03/20/24 15:25 Oxygen Delivery Method Room Air 03/20/24 15:25 BMI result Body Mass Index 27.7 Tobacco/Smoking Status: Tobacco use Status Tobacco use date assessed 11/18/23 03/20/24 15:24 Patient Tobacco Use Status Never used Tobacco 03/20/24 15:24 e-Cigarette/Vaping Use Never Used 03/20/24 15:24 Thrive Assessment: Date of Thrive Assessment Date Thrive assessed 11/18/23 03/20/24 15:24 Const General: no acute distress and alert HENMT Ears: TM's normal bilaterally and EAC's normal Throat: Yes posterior oropharynx normal and Yes tonsils normal (no TP congestion noted) Neck Neck: Yes no lymphadenopathy and Yes supple Thyroid: Thyroid normal Resp Auscultation: clear to auscultation bilaterally, no rales and no wheezes Cardio Rate: regular rate Rhythm: regular rhythm Heart sounds: no murmurs GI Palpation (GI): Soft to palpation and nontender Auscultation: normal bowel sounds General: Yes no CVA tenderness Back/Spine/Pelvis Back: no CVA tenderness Thoracic/Lumbar Spine: No lumbar spinal tenderness Skin Rashes: no rashes Extrem General: Yes no clubbing, cyanosis or edema Results Reviewed Results Reviewed: Laboratory Tests 03/18/24 03/18/24 06:24 06:28 WBC 6.8 Hgb 14.2 Hct 42.2 Plt Count 298 Sodium 143 Potassium 4.3 Creatinine 1.08 Estimated GFR > 60 Fasting Glucose 108 H Calcium 9.8 AST 13 ALT 20 Triglycerides 184 H Cholesterol 171 LDL Cholesterol, Calc 91 HDL Cholesterol 44 25-OH Vitamin D Total 43.7 Free T4 0.73 Ur Specific [place] >= 1.030 H Urine Protein Negative Urine Glucose (UA) Negative Urine Blood Negative Urine Nitrite Negative Ur Leukocyte Esterase Negative Assessment and Plan Assessment & Plan (1) Pure hypercholesterolemia: Code(s): E78.00 - Pure hypercholesterolemia, unspecified Plan: Results of his labs done a couple of days ago reviewed and discussed with patient Reinforced low cholesterol diet Continue Atorvastatin 20 mg QD Will recheck his labs and fasting lipids in 4 months for follow up (2) Benign essential hypertension: Code(s): I10 - Essential (primary) hypertension Plan: Reinforced low sodium diet - goal is systolic BP of 120 mm or less (3) Impaired fasting glucose: Code(s): R73.01 - Impaired fasting glucose Plan: His HgbA1c was normal at 5.4% and 5.2% when previously checked in the office and with his routine labs Reinforced low calorie diet/exercise as tolerated (4) Bojorquez's esophagus: Code(s): K22.70 - Bojorquez's esophagus without dysplasia Qualifiers: Bojorquez's esophagus type: without dysplasia Qualified Code(s): K22.70 - Bojorquez's esophagus without dysplasia Plan: EGD with biopsy done on 09/26/2016 and 02/22/[address] Cortés He was seen for follow up in May [address] Cortés and was advised to d ouble up on his Omeprazole to 40 mg QD; he eventually underwent repeat EGD in January 2023, which came out negative Colonoscopy is not due until [address] Cortés as scheduled (5) Mild anemia: Code(s): D64.9 - Anemia, unspecified Plan: Anemia work ups done previously all came out negative; his recent CBC came back normal Will continue to monitor his CBC regularly - will recheck CBC in 4 months for follow up (6) Asthma: Code(s): J45.909 - Unspecified asthma, uncomplicated Qualifiers: Asthma severity: mild Asthma persistence: persistent Asthma complication type: uncomplicated Qualified Code(s): J45.30 - Mild persistent asthma, uncomplicated Plan: Stable Chest x-rays done last year to evaluate his recurrent coughing back then came out normal; his cough has since resolved Continue Symbicort 80-4.5 mcg 2 inhalations BID and Albuterol HFA 2 puffs 4 times a day as needed (7) Recurrent headache: Code(s): R51.9 - Headache, unspecified Plan: Will send him for head CT for further evaluation of his recurrent and occasionally pounding headaches - need to r/o aneurysm as a potential cause of h is headaches (8) Vitamin D deficiency: Code(s): E55.9 - Vitamin D deficiency, unspecified Plan: Continue Vitamin D3 2000 units QD (9) Erectile dysfunction: Code(s): N52.9 - Male erectile dysfunction, unspecified Qualifiers: Erectile dysfunction type: unspecified Qualified Code(s): N52.9 - Male erectile dysfunction, unspecified Plan: Continue Tadalafil 5 mg QD PRN Testosterone level checked last year came back normal (10) Overweight (BMI 25.0-29.9): Code(s): E66.3 - Overweight Plan: Reinforced diet/exercise as tolerated/lose weight Plan Follow up with 4 months Orders: Orders CT head/brain w IV con Today R51.9 - Headache, unspecified TSH reflex Free T4 4 Months E78.00 - Pure hypercholesterolemia, unspecified, R79.89 - Other specified abnormal findings of blood chemistry Vitamin D 25-OH Total 4 Months E55.9 - Vitamin D deficiency, unspecified Hemoglobin A1c 4 Months R73.01 - Impaired fasting glucose Complete Blood Count Auto Diff 4 Months D64.9 - Anemia, unspecified Comprehensive [place]. Panel Fast 4 Months E78.00 - Pure hypercholesterolemia, unspecified Lipid Panel 4 Months E78.00 - Pure hypercholesterolemia, unspecified UA CC w/rflx Micro + Cult 4 Months R30.0 - Dysuria Coding Level of Care Code Est Pt Level 4 (28637) Diagnoses Pure hypercholesterolemia E78.00 Benign essential hypertension I10 Impaired fasting glucose R73.01 Bojorquez's esophagus without dysplasia K22.70 Bojorquez's esophagus type: without dysplasia Mild anemia D64.9 Mild persistent asthma without complication J45.30 Asthma severity: mild Asthma persistence: persistent Asthma complication type: uncomplicated Recurrent headache R51.9 Vitamin D deficiency E55.9 Erectile dysfunction, unspecified erectile dysfunction type N52.9 Erectile dysfunction type: unspecified Overweight (BMI 25.0-29.9) E66.3
[2024-03-20 15:25] VITALS: BP 122/76; PULSE 65; O2SAT 95; BMI 27.7
== END 2024-03-20 16:11 | disposition home or self-care (01) ==
PROVIDERS: PCP Internal Medicine; Visit Provider Internal Medicine
DX: E78.00 Pure hypercholesterolemia, unspecified (principal); I10 Essential (primary) hypertension; R73.01 Impaired fasting glucose; K22.70 Barrett's esophagus without dysplasia; D64.9 Anemia, unspecified; J45.30 Mild persistent asthma, uncomplicated; R51.9 Headache, unspecified; E55.9 Vitamin D deficiency, unspecified; N52.9 Male erectile dysfunction, unspecified; E66.3 Overweight
CPT/HCPCS: 99214

== ENCOUNTER 2024-04-30 06:44 | Outpatient (REF) | payer BC, SELFPAY ==
[2024-04-30 06:54] LABS: MANUAL DIFF FLAG NO
[2024-04-30 07:17] LABS: Basophils Percent Auto 0.6 % (0-2); Eosinophils Absolute Auto 0.2 X10*3/uL (0.0-0.4); Eosinophils Percent Auto 3.4 % (0-4); Hematocrit 41.7 % (42.0-52.0); Hemoglobin 13.9 g/dl (14.0-18.0); Imm Gran Abs Auto 0.05 X10*3/uL (0.00-0.03); Imm Gran Pct Auto 0.7 % (0.0-0.4); Lymphocytes Absolute Auto 2.3 X10*3/uL (1.2-4.9); Lymphocytes Percent Auto 32.9 % (20-40); Mean Corpuscular HGB Conc 33.3 g/dl (31.0-36.0); Mean Corpuscular Hemoglobin 30.3 pg (27.0-33.0); Mean Corpuscular Volume 90.8 fL (80.0-98.0); Monocytes Absolute Auto 0.7 X10*3/uL (0.1-1.2); Monocytes Percent Auto 9.5 % (2-11); Neutrophils Absolute Auto 3.6 x10*3/uL (2.0-8.3); Neutrophils Percent Auto 52.9 % (45-73); Platelet Count 301 X10*3/uL (160-400); Red Blood Count 4.59 X10*6/uL (4.60-5.80); Red Cell Distribution Width 12.4 % (11.0-16.0); White Blood Count 6.8 X10*3/uL (4.8-10.8)
[2024-04-30 07:30] LABS: Estimated Average Glucose 105 mg/dL; Hemoglobin A1c % 5.3 % (<6.0)
[2024-04-30 07:55] LABS: Alanine Aminotransferase 17 U/L (0-40); Albumin Level 4.3 g/dL (3.5-5.0); Alkaline Phosphatase 54 U/L (39-117); Anion Gap 10 (12-20); Aspartate Amino Transferase 15 U/L (5-37); Bilirubin Total 1.2 mg/dL (0.0-1.0); Blood Urea Nitrogen 15 mg/dL (9-16); Calcium 9.3 mg/dL (8.4-10.2); Carbon Dioxide 26 mmol/L (22-29); Chloride 108 mmol/L (96-108); Cholesterol 173 mg/dL (<200); Estimated Glomerular Filt Rate > 60; Glucose Fasting 103 mg/dL (60-99); HDL Cholesterol 44 mg/dL (>40); LDL Cholesterol Calculated 101 mg/dL (<100); Potassium 3.9 mmol/L (3.3-5.1); Sodium 140 mmol/L (135-145); Total Protein 6.9 g/dL (6.5-8.0); Triglycerides 142 mg/dL (<150)
[2024-04-30 08:08] LABS: Appearance Urine Clear; Color Urine Yellow; Glucose Urine UA Negative (Negative); Leukocyte Esterase Urine Negative (Negative); Nitrite Urine Negative (Negative); Specific Gravity - Urine >= 1.030 (1.005-1.025); Urine Blood Negative (Negative); Urine Ketones Negative (Negative); Urine Protein Negative (Neg-Trace)
[2024-04-30 08:13] LABS: TSH reflex Free T4 5.06 uIU/mL (0.32-4.0); Vitamin D 25-OH Total 45.7 ng/mL (>30)
[2024-04-30 09:22] LABS: Free T4 (Free Thyroxine) 0.81 ng/dL (0.71-1.85)
== END 2024-04-30 06:45 | disposition home or self-care (01) ==
LOC: HO.LAB 06:44
PROVIDERS: PCP Internal Medicine; Visit Provider Internal Medicine
DX: E55.9 Vitamin D deficiency, unspecified (principal); R73.01 Impaired fasting glucose; D64.9 Anemia, unspecified; E78.00 Pure hypercholesterolemia, unspecified; R30.0 Dysuria; R79.89 Other specified abnormal findings of blood chemistry
CPT/HCPCS: 36415; 80053; 80061; 81003; 82306; 83036; 84439; 84443; 85025

== ENCOUNTER 2024-05-06 08:42 | Outpatient (REF) | payer BC, SELFPAY ==
--- NOTE | ~2024-05-06 | CT_ITS ---
EXAMINATION CT HEAD WITH CONTRAST CLINICAL INFORMATION: Headache COMPARISON: None TECHNIQUE: CT of the head was performed after uneventful administration of 85 cc Omnipaque 350. Reformatted axial, coronal, and sagittal images were reviewed. This CT examination was performed using dose optimization techniques as appropriate, variously including the following: *Automated exposure control *Adjustment of mA and/or kV according to patient size (this includes techniques or standardized protocols for targeted exams where dose is matched to indication/reason for exam; i.e. extremities or head) *Use of iterative reconstruction technique DLP: 716 mGy-cm FINDINGS: No enhancing masses or fluid collection. Evaluation for intracranial hemorrhage limited on this study due to presence of contrast. No large intracranial hemorrhage, extra-axial fluid collection, or midline shift is identified. Dural venous sinuses are patent. [place]-white matter differentiation is preserved. The ventricles are within normal limits. Basal cisterns are within normal limits. Hyperdense soft tissue mass within the left middle ear measuring 1.7 x 0.8 x 1.2 cm resulting in jg erosion of the left mastoid, middle ear cavity, and petrous bone. Right maxillary mucous retention cyst. Left maxillary mucosal thickening. Deviated nasal septum to the right. No acute calvarial fractures. CT/CT head/brain w IV con IMPRESSION: 1. No acute intracranial abnormality. 2. Evaluation for aneurysm limited on this study. Appropriate order for study would be CTA or MRA head. 3. Hyperdense soft tissue mass within the left middle ear measuring 1.7 x 0.8 x 1.2 cm resulting in jg erosion of the left mastoid, middle ear cavity, and petrous bone. DDx includes cholesteatoma, meningioma, schwannoma, or paraganglioma. Recommend further evaluation with MRI skull base bone with contrast. Electronically signed by: Vamshi Marks DO 05/13/2024 10:30 PM EDT
[2024-05-06] MEDS: iohexoL 350 MG/ML 100 ML INFUS..BTL IV (09:39)
== END 2024-05-06 08:43 | disposition home or self-care (01) ==
LOC: HO.CT 08:42
PROVIDERS: PCP Internal Medicine; Visit Provider Internal Medicine
DX: R51.9 Headache, unspecified (principal)
CPT/HCPCS: 70460; Q9967

== ENCOUNTER 2024-07-20 06:46 | Outpatient (REF) | payer BC, SELFPAY ==
[2024-07-20 06:57] LABS: MANUAL DIFF FLAG NO
[2024-07-20 07:22] LABS: Basophils Absolute Auto 0.1 X10*3/uL (0.0-0.2); Basophils Percent Auto 0.9 % (0-2); Eosinophils Absolute Auto 0.2 X10*3/uL (0.0-0.4); Eosinophils Percent Auto 2.6 % (0-4); Hematocrit 39.9 % (42.0-52.0); Hemoglobin 13.7 g/dl (14.0-18.0); Imm Gran Abs Auto 0.06 X10*3/uL (0.00-0.03); Imm Gran Pct Auto 0.9 % (0.0-0.4); Lymphocytes Absolute Auto 2.3 X10*3/uL (1.2-4.9); Lymphocytes Percent Auto 33.4 % (20-40); Mean Corpuscular HGB Conc 34.3 g/dl (31.0-36.0); Mean Corpuscular Hemoglobin 30.4 pg (27.0-33.0); Mean Corpuscular Volume 88.7 fL (80.0-98.0); Mean Platelet Volume 8.9 fL (9.4-12.4); Monocytes Absolute Auto 0.6 X10*3/uL (0.1-1.2); Neutrophils Absolute Auto 3.7 x10*3/uL (2.0-8.3); Neutrophils Percent Auto 54.2 % (45-73); Platelet Count 321 X10*3/uL (160-400); Red Cell Distribution Width 12.1 % (11.0-16.0); White Blood Count 6.9 X10*3/uL (4.8-10.8)
[2024-07-20 07:30] LABS: Appearance Urine Clear; Color Urine Yellow; Glucose Urine UA Negative (Negative); Leukocyte Esterase Urine Negative (Negative); Nitrite Urine Negative (Negative); Specific Gravity - Urine >= 1.030 (1.005-1.025); Urine Blood Negative (Negative); Urine Ketones Negative (Negative); Urine Protein Negative (Neg-Trace)
[2024-07-20 08:02] LABS: Alanine Aminotransferase 30 U/L (0-40); Albumin Level 4.3 g/dL (3.5-5.0); Alkaline Phosphatase 78 U/L (39-117); Anion Gap 13 (12-20); Aspartate Amino Transferase 19 U/L (5-37); Bilirubin Total 1.1 mg/dL (0.0-1.0); Blood Urea Nitrogen 18 mg/dL (9-16); Calcium 9.1 mg/dL (8.4-10.2); Carbon Dioxide 25 mmol/L (22-29); Chloride 107 mmol/L (96-108); Cholesterol 166 mg/dL (<200); Estimated Glomerular Filt Rate > 60; Glucose Fasting 112 mg/dL (60-99); HDL Cholesterol 43 mg/dL (>40); LDL Cholesterol Calculated 97 mg/dL (<100); Potassium 3.9 mmol/L (3.3-5.1); Sodium 141 mmol/L (135-145); Total Protein 6.6 g/dL (6.5-8.0); Triglycerides 132 mg/dL (<150)
[2024-07-20 08:16] LABS: Vitamin D 25-OH Total 37.9 ng/mL (>30)
== END 2024-07-20 06:47 | disposition home or self-care (01) ==
LOC: HO.LAB 06:46
PROVIDERS: PCP Internal Medicine; Visit Provider Internal Medicine
DX: D64.9 Anemia, unspecified (principal); R30.0 Dysuria; E78.00 Pure hypercholesterolemia, unspecified; E55.9 Vitamin D deficiency, unspecified
CPT/HCPCS: 36415; 80053; 80061; 81003; 82306; 85025

== ENCOUNTER 2024-07-21 14:19 | Outpatient (AMB) | payer BC, SELFPAY ==
[2024-07-21 14:22] VITALS: BP 124/80; PULSE 58; O2SAT 97; BMI 28.0
--- NOTE | 2024-07-21 14:22 | MHC.PC.OV ---
Vital Signs 07/21/24 14:22 Height 5 ft 7 in Weight 178 lb 8 oz BMI 28.0 BP 124/80 Blood Pressure Location Lt brachial Position Sitting Pulse 58 Pulse Source Pulse Oximeter Pulse Oximetry (%) 97 Oxygen Delivery Method Room Air Intake Visit Reasons: [facility] f/u Risk Control Analyst Required: No Accompanied by: Self / Same As Patient Allergies No Known Allergies Allergy (Verified 07/21/24 15:03) Medication List - Last Reconciled 07/21/24 by Jamal Landa MD atorvastatin 20 mg PO DAILY budesonide-formoterol 80-4.5 mcg/actuation 2 puffs PO BID cholecalciferol (vitamin D3) 50 mcg PO DAILY 90 days omeprazole 20 mg PO DAILY Tobacco use date assessed: 07/21/24 Dental Screening Dental Screen Date: 07/21/24 Did you have a dental visit in the last 12 months?: Yes Did you have a dental problem in the last 6 months where you did not have access to dental care?: No Was dental information given to patient?: Patient has dentist HPI [facility] f/u HPI Details Patient comes in today for his follow-up visit States that he feels okay He denies any headaches or dizziness - states that the previous headaches that he was experiencing eventually subsided/resolved gradually on their own He would like to confirm that the head CT he did a few months ago came out completely normal as he was concerned then that he could have an aneurysm that was causing his symptoms He denies any chest pains, no shortness of breath No nausea/vomiting, no abdominal pain No change in bowel habits noted He had his follow-up labs done yesterday - to discuss his results [facility] Medical History Erectile dysfunction Vitamin D deficiency Bojorquez's esophagus Normal colonoscopy (~09/26/16) Rupture of left kidney (~1981) Depression Asthma Overweight (BMI 25.0-29.9) Testicular discomfort Pure hypercholesterolemia Benign essential hypertension Impaired fasting glucose Surgical History History of esophagogastroduodenoscopy (EGD) History of appendectomy History of ear surgery Social History Housing: House Alcohol intake: current Alcohol intake frequency: a few times a week Patient Tobacco Use Status: Never used Tobacco e-Cigarette/Vaping Use: Never Used Second Hand Smoke Exposure: Yes service: No Current occupational status: employed Cognitive needs: No Hearing needs: No Vision needs: Yes (Reading Glasses) Questionnaire PHQ-9 Over the last 2 weeks, how often have you been bothered by any of the following problems? 1. Little interest or pleasure in doing things: not at all 2. Feeling down, depressed, or hopeless: not at all 3. Trouble falling or staying asleep, or sleeping too much: not at all 4. Feeling tired or having little energy: not at all 5. Poor appetite or overeating: not at all 6. Feeling bad about yourself - or that you are a failure or have let yourself or your family down: not at all 7. Trouble concentrating on things, such as reading the newspaper or watching television: not at all 8. Moving or speaking so slowly that other people could have noticed. Or the opposite - being so fidgety or restless that you have been moving around a lot more than usual: not at all 9. Thoughts that you would be better off or of hurting yourself in some way: not at all Total score: 0 Depression Screening Interpretation: Negative Depression Screening Done: Yes 93858 - PHQ-9 Billing: Yes Source: Developed by Drs. Angel Cortez, Nitza Langford, Javier Leal and colleagues, with an educational bernarda from [employer]. Thrive Questionnaire Date Thrive assessed: 07/21/24 I am a: Patient What is your living situation today?: I have a steady place to live Within the past 12 months, did the food you bought not last and you didn't have the money to get more?: Never true Within the past 12 months, did you worry whether your food would run out before you got money to buy more?: Never true Do you have trouble paying for medicines?: No Do you have trouble getting transportation to medical appointments?: No Do you have trouble paying your heating and electricity bill?: No Do you have trouble taking care of your child, family member or friend?: No Do you have trouble with day-to-day activities such as bathing, preparing meals, shopping, managing finances, etc.?: No Are you currently unemployed and looking for a job?: No Are you interested in more education?: No Please select the resources that you would like help with: None Currently or been in a relationship where the following occur: No concerns reported THRIVE Score: 0 AUDIT C Alcohol Use Questionnaire (AUDIT-C) 1. How often do you have a drink containing alcohol?: Monthly or less 2. How many drinks containing alcohol do you have on a typical day when you are drinking?: 1 or 2 Total Score: 1 Score Reviewed/Action Taken: Yes QUE-7 AMB Questionnaire QUE-7 Date QUE - 7 assessed: 07/21/24 Feeling nervous, anxious, or on edge: 0 = Not at all Not being able to stop or control worryin = Not at all Worrying too much about different things: 0 = Not at all Trouble relaxin = Not at all Being so restless that it is hard to sit still: 0 = Not at all Becoming easily annoyed or irritable: 0 = Not at all Feeling afraid as if something awful might happen: 0 = Not at all Total QUE-7 score (0-4 normal; 5-9 mild; 10-14 moderate; 15-21 severe): 0 Source: Developed by Drs. Angel Cortez, Nitza Langford, Javier Leal and colleagues, with an educational bernarda from [employer]. Review of Systems Const Denies chills, Denies fatigue, Denies fever(s) and Denies headache(s) ENT Denies dysphagia, Denies dizziness, Denies otalgia, Denies headache(s), Denies neck pain, Denies odynophagia and Denies sore throat Card Denies chest pain, Denies palpitations and Denies dyspnea Resp Denies cough and Denies dyspnea GI Denies abdominal pain, Denies constipation, Denies dysphagia, Denies heartburn, Denies diarrhea, Denies nausea, Denies odynophagia and Denies vomiting Denies dysuria, Denies nocturia and Denies urinary frequency Musc Denies back pain, Reports arthralgias (occasionally, in the knees) and Denies neck pain Skin/Breast Denies rash Neuro Denies dizziness and Denies headache(s) Endo Denies fatigue and Denies palpitations Physical exam (Primary Care) Vital Signs: Last Vital Signs Pulse 58 07/21/24 14:22 BP 124/80 07/21/24 14:22 Pulse Ox 97 07/21/24 14:22 Oxygen Delivery Method Room Air 07/21/24 14:22 BMI result Body Mass Index 28.0 Tobacco/Smoking Status: Tobacco use Status Tobacco use date assessed 07/21/24 07/21/24 14:26 Patient Tobacco Use Status Never used Tobacco 07/21/24 14:26 e-Cigarette/Vaping Use Never Used 07/21/24 14:26 PHQ-9: PHQ-9 Score PHQ-9: Total score 0 07/21/24 15:04 Depression Screening Interpretation: Negative Thrive Assessment: Date of Thrive Assessment Date Thrive assessed 07/21/24 07/21/24 14:26 Currently or been in a relationship where the following occur: No concerns reported Const General: no acute distress and alert HENMT Ears: TM's normal bilaterally and EAC's normal Throat: Yes posterior oropharynx normal and Yes tonsils normal (no TP congestion noted) Neck Neck: Yes no lymphadenopathy and Yes supple Thyroid: Thyroid normal Resp Auscultation: clear to auscultation bilaterally, no rales and no wheezes Cardio Rate: regular rate Rhythm: regular rhythm Heart sounds: no murmurs GI Palpation (GI): Soft to palpation and nontender Auscultation: normal bowel sounds General: Yes no CVA tenderness Back/Spine/Pelvis Back: no CVA tenderness Thoracic/Lumbar Spine: No lumbar spinal tenderness Skin Rashes: no rashes Extrem General: Yes no clubbing, cyanosis or edema Results Reviewed Results Reviewed: Laboratory Tests 07/20/24 06:54 WBC 6.9 Hgb 13.7 L Hct 39.9 L Plt Count 321 Sodium 141 Potassium 3.9 Creatinine 0.95 Estimated GFR > 60 Fasting Glucose 112 H Calcium 9.1 AST 19 ALT 30 Triglycerides 132 Cholesterol 166 LDL Cholesterol, Calc 97 HDL Cholesterol 43 25-OH Vitamin D Total 37.9 Ur Specific [place] >= 1.030 H Urine Protein Negative Urine Glucose (UA) Negative Urine Blood Negative Urine Nitrite Negative Ur Leukocyte Esterase Negative Coding Level of Care Code Est Pt Level 4 (48176) Diagnoses Pure hypercholesterolemia E78.00 Benign essential hypertension I10 Impaired fasting glucose R73.01 Bojorquez's esophagus without dysplasia K22.70 Bojorquez's esophagus type: without dysplasia Mild anemia D64.9 Mild persistent asthma without complication J45.30 Asthma severity: mild Asthma persistence: persistent Asthma complication type: uncomplicated Nonintractable headache, unspecified chronicity pattern, unspecified headache type R51.9 Headache type: unspecified Headache chronicity pattern: unspecified pattern Intractability: not intractable Vitamin D deficiency E55.9 Erectile dysfunction, unspecified erectile dysfunction type N52.9 Erectile dysfunction type: unspecified Overweight (BMI 25.0-29.9) E66.3 Additional Codes PHQ-9 - 95356 - PHQ-9 Billing: Yes ([id number]) Assessment & Plan Assessment & Plan (1) Pure hypercholesterolemia: Code(s): E78.00 - Pure hypercholesterolemia, unspecified Category: Medical Plan: Results of his labs done yesterday reviewed and discussed with patient Reinforced low cholesterol diet Continue Atorvastatin 20 mg QD Will recheck his labs and fasting lipids in 4 months for follow up (2) Benign essential hypertension: Code(s): I10 - Essential (primary) hypertension Category: Medical Plan: Reinforced low sodium diet - goal is systolic BP of 120 mm or less He is advised to continue monitoring his blood pressure regularly (3) Impaired fasting glucose: Code(s): R73.01 - Impaired fasting glucose Category: Medical Plan: His FBS was still elevated at 112 mg/dl on his labs done yesterday His HgbA1c was normal at 5.4% and 5.2% when previously checked in the office and with his routine labs Reinforced low calorie diet/exercise as tolerated (4) Bojorquez's esophagus: Code(s): K22.70 - Bojorquez's esophagus without dysplasia Category: Medical Qualifiers: Bojorquez's esophagus type: without dysplasia Qualified Code(s): K22.70 - Bojorquez's esophagus without dysplasia Plan: EGD with biopsy done on 09/26/2016 and 02/22/[address] Cortés He was seen for follow up in May [address] Cortés and was advised to double up on his Omeprazole to 40 mg QD; he eventually underwent repeat EGD in January 2023, which came out negative Colonoscopy is not due until 2026 He is currently back on Omeprazole 20 mg QD Follow up with Dr. Cortés as scheduled (5) Mild anemia: Code(s): D64.9 - Anemia, unspecified Category: Medical Plan: Anemia work ups done previously all came out negative; his recent CBC came back normal Will continue to monitor his CBC regularly - will recheck CBC in 4 months for follow up (6) Asthma: Code(s): J45.909 - Unspecified asthma, uncomplicated Category: Medical Qualifiers: Asthma severity: mild Asthma persistence: persistent Asthma complication type: uncomplicated Qualified Code(s): J45.30 - Mild persistent asthma, uncomplicated Plan: Stable Chest x-rays done last year to evaluate his recurrent coughing back then came out normal; his cough has since resolved Continue Symbicort 80-4.5 mcg 2 inhalations BID and Albuterol HFA 2 puffs 4 times a day as needed (7) Headache: Code(s): R51.9 - Headache, unspecified Category: Medical Qualifiers: Headache type: unspecified Headache chronicity pattern: unspecified pattern Intractability: not intractable Qualified Code(s): R51.9 - Headache, unspecified Plan: He is reassured that his head CT done a few months ago came out normal with no evidence of an intracranial aneurysm Patient states that his headache have gradually cleared up since his last visit (8) Vitamin D deficiency: Code(s): E55.9 - Vitamin D deficiency, unspecified Category: Medical Plan: Continue Vitamin D3 2000 units QD (9) Erectile dysfunction: Code(s): N52.9 - Male erectile dysfunction, unspecified Category: Medical Qualifiers: Erectile dysfunction type: unspecified Qualified Code(s): N52.9 - Male erectile dysfunction, unspecified Plan: Continue Tadalafil 5 mg QD PRN Testosterone level checked last year came back normal (10) Overweight (BMI 25.0-29.9): Code(s): E66.3 - Overweight Category: Medical Plan: Reinforced diet/exercise as tolerated/lose weight Plan Follow up in 4 months Orders: Orders Complete Blood Count Auto Diff 4 Months D64.9 - Anemia, unspecified UA CC w/rflx Micro + Cult 4 Months R30.0 - Dysuria Thyroid Stimulating Hormone 4 Months R79.89 - Other specified abnormal findings of blood chemistry Free T4 (Free Thyroxine) 4 Months R79.89 - Other specified abnormal findings of blood chemistry Comprehensive Viola. Panel Fast 4 Months E78.00 - Pure hypercholesterolemia, unspecified Lipid Panel 4 Months E78.00 - Pure hypercholesterolemia, unspecified Vitamin D 25-OH Total 4 Months E55.9 - Vitamin D deficiency, unspecified
== END 2024-07-21 15:14 | disposition home or self-care (01) ==
PROVIDERS: PCP Internal Medicine; Visit Provider Internal Medicine
DX: E78.00 Pure hypercholesterolemia, unspecified (principal); I10 Essential (primary) hypertension; R73.01 Impaired fasting glucose; K22.70 Barrett's esophagus without dysplasia; D64.9 Anemia, unspecified; J45.30 Mild persistent asthma, uncomplicated; R51.9 Headache, unspecified; E55.9 Vitamin D deficiency, unspecified; N52.9 Male erectile dysfunction, unspecified; E66.3 Overweight

== ENCOUNTER → 2024-07-21 14:19 | Outpatient (BNVA) | payer BC, SELFPAY | PROVIDERS: PCP Internal Medicine; Visit Provider Internal Medicine | DX: E78.00 Pure hypercholesterolemia, unspecified (principal); I10 Essential (primary) hypertension; R73.01 Impaired fasting glucose; K22.70 Barrett's esophagus without dysplasia; D64.9 Anemia, unspecified; J45.30 Mild persistent asthma, uncomplicated; R51.9 Headache, unspecified; E55.9 Vitamin D deficiency, unspecified; N52.9 Male erectile dysfunction, unspecified; E66.3 Overweight; Z68.28 Body mass index [BMI] 28.0-28.9, adult; Z79.899 Other long term (current) drug therapy | CPT/HCPCS: 96127 ==

== ENCOUNTER 2024-11-17 06:52 | Outpatient (REF) | payer BC, SELFPAY ==
[2024-11-17 07:05] LABS: MANUAL DIFF FLAG NO
[2024-11-17 07:21] LABS: Basophils Absolute Auto 0.1 X10*3/uL (0.0-0.2); Basophils Percent Auto 0.7 % (0-2); Eosinophils Absolute Auto 0.2 X10*3/uL (0.0-0.4); Eosinophils Percent Auto 2.8 % (0-4); Hematocrit 42.6 % (42.0-52.0); Hemoglobin 14.4 g/dl (14.0-18.0); Imm Gran Abs Auto 0.06 X10*3/uL (0.00-0.03); Imm Gran Pct Auto 0.9 % (0.0-0.4); Lymphocytes Absolute Auto 2.2 X10*3/uL (1.2-4.9); Mean Corpuscular HGB Conc 33.8 g/dl (31.0-36.0); Mean Corpuscular Hemoglobin 29.9 pg (27.0-33.0); Mean Corpuscular Volume 88.6 fL (80.0-98.0); Mean Platelet Volume 8.7 fL (9.4-12.4); Monocytes Absolute Auto 0.5 X10*3/uL (0.1-1.2); Neutrophils Absolute Auto 3.7 x10*3/uL (2.0-8.3); Neutrophils Percent Auto 55.6 % (45-73); Platelet Count 327 X10*3/uL (160-400); Red Blood Count 4.81 X10*6/uL (4.60-5.80); Red Cell Distribution Width 12.1 % (11.0-16.0); White Blood Count 6.7 X10*3/uL (4.8-10.8)
[2024-11-17 07:30] LABS: Appearance Urine Clear; Color Urine Yellow; Glucose Urine UA Negative (Negative); Leukocyte Esterase Urine Negative (Negative); Nitrite Urine Negative (Negative); PH 5.5 (5.0-9.0); Specific Gravity - Urine 1.025 (1.005-1.025); Urine Blood Negative (Negative); Urine Ketones Negative (Negative); Urine Protein Negative (Neg-Trace)
[2024-11-17 07:56] LABS: Alanine Aminotransferase 27 U/L (0-40); Albumin Level 4.4 g/dL (3.5-5.0); Alkaline Phosphatase 63 U/L (39-117); Anion Gap 9 (12-20); Aspartate Amino Transferase 17 U/L (5-37); Blood Urea Nitrogen 18 mg/dL (9-16); Calcium 9.4 mg/dL (8.4-10.2); Carbon Dioxide 27 mmol/L (22-29); Chloride 109 mmol/L (96-108); Cholesterol 191 mg/dL (<200); Estimated Glomerular Filt Rate > 60; Glucose Fasting 104 mg/dL (60-99); HDL Cholesterol 45 mg/dL (>40); LDL Cholesterol Calculated 117 mg/dL (<100); Potassium 4.4 mmol/L (3.3-5.1); Sodium 141 mmol/L (135-145); Total Protein 6.9 g/dL (6.5-8.0); Triglycerides 149 mg/dL (<150)
[2024-11-17 08:12] LABS: Free T4 (Free Thyroxine) 0.81 ng/dL (0.71-1.85); Thyroid Stimulating Hormone 5.56 uIU/mL (0.32-4.0); Vitamin D 25-OH Total 35.1 ng/mL (>30)
== END 2024-11-17 06:53 | disposition home or self-care (01) ==
LOC: HO.LAB 06:52
PROVIDERS: PCP Internal Medicine; Visit Provider Internal Medicine
DX: R73.01 Impaired fasting glucose (principal); D64.9 Anemia, unspecified; R79.89 Other specified abnormal findings of blood chemistry; E78.00 Pure hypercholesterolemia, unspecified; R30.0 Dysuria; E55.9 Vitamin D deficiency, unspecified
CPT/HCPCS: 36415; 80053; 80061; 81003; 82306; 84439; 84443; 85025

== ENCOUNTER 2024-11-18 15:05 | Outpatient (AMB) | payer BC, SELFPAY ==
[2024-11-18 15:07] VITALS: BP 116/80; PULSE 67; O2SAT 97; BMI 27.8
--- NOTE | 2024-11-18 15:07 | MHC.PC.OV ---
Vital Signs 11/18/24 15:07 Height 5 ft 7 in Weight 177 lb 6 oz BMI 27.8 BP 116/80 Blood Pressure Location Lt brachial Position Sitting Pulse 67 Pulse Source Pulse Oximeter Pulse Oximetry (%) 97 Oxygen Delivery Method Room Air Intake Visit Reasons: 4 Months f/u Human Resource Officer Required: No Accompanied by: Self / Same As Patient Allergies No Known Allergies Allergy (Verified 11/18/24 15:28) Medication List - Last Reconciled 11/18/24 by Jamal Landa MD atorvastatin 20 mg PO DAILY budesonide-formoterol 80-4.5 mcg/actuation 2 puffs PO BID cholecalciferol (vitamin D3) 50 mcg PO DAILY 90 days omeprazole 20 mg PO DAILY Tobacco use date assessed: 11/18/24 Dental Screening Dental Screen Date: 11/18/24 Did you have a dental visit in the last 12 months?: Yes Did you have a dental problem in the last 6 months where you did not have access to dental care?: No Was dental information given to patient?: Patient has dentist HPI 4 Months f/u HPI Details Patient comes in today for his follow-up visit for his hyperlipidemia, asthma and Bojorquez's esophagus States that he feels okay He denies any headaches or dizziness Denies any chest pains, no shortness of breath No nausea/vomiting, no abdominal pain No change in bowel habits noted He had his follow-up labs done yesterday - to discuss his results [facility] Medical History Erectile dysfunction Vitamin D deficiency Bojorquez's esophagus Normal colonoscopy (~09/26/16) Rupture of left kidney (~1981) Depression Asthma Overweight (BMI 25.0-29.9) Testicular discomfort Pure hypercholesterolemia Benign essential hypertension Impaired fasting glucose Surgical History History of esophagogastroduodenoscopy (EGD) History of appendectomy History of ear surgery Social History Housing: House Alcohol intake: current Alcohol intake frequency: a few times a week Patient Tobacco Use Status: Never used Tobacco e-Cigarette/Vaping Use: Never Used Second Hand Smoke Exposure: Yes service: No Current occupational status: employed Cognitive needs: No Hearing needs: No Vision needs: Yes (Reading Glasses) Questionnaire PHQ-9 Over the last 2 weeks, how often have you been bothered by any of the following problems? 1. Little interest or pleasure in doing things: not at all 2. Feeling down, depressed, or hopeless: not at all 3. Trouble falling or staying asleep, or sleeping too much: not at all 4. Feeling tired or having little energy: not at all 5. Poor appetite or overeating: not at all 6. Feeling bad about yourself - or that you are a failure or have let yourself or your family down: not at all 7. Trouble concentrating on things, such as reading the newspaper or watching television: not at all 8. Moving or speaking so slowly that other people could have noticed. Or the opposite - being so fidgety or restless that you have been moving around a lot more than usual: not at all 9. Thoughts that you would be better off or of hurting yourself in some way: not at all Total score: 0 Depression Screening Interpretation: Negative Depression Screening Done: Yes 98742 - PHQ-9 Billing: Yes Source: Developed by Drs. Angel Cortez, Nitza Langford, Javier Leal and colleagues, with an educational bernarda from [employer]. Thrive Questionnaire Date Thrive assessed: 11/18/24 I am a: Patient What is your living situation today?: I have a steady place to live Within the past 12 months, did the food you bought not last and you didn't have the money to get more?: Never true Within the past 12 months, did you worry whether your food would run out before you got money to buy more?: Never true Do you have trouble paying for medicines?: No Do you have trouble getting transportation to medical appointments?: No Do you have trouble paying your heating and electricity bill?: No Do you have trouble taking care of your child, family member or friend?: No Do you have trouble with day-to-day activities such as bathing, preparing meals, shopping, managing finances, etc.?: No Are you currently unemployed and looking for a job?: No Are you interested in more education?: No Please select the resources that you would like help with: None Currently or been in a relationship where the following occur: No concerns reported THRIVE Score: 0 AUDIT C Alcohol Use Questionnaire (AUDIT-C) 1. How often do you have a drink containing alcohol?: Never 2. How many drinks containing alcohol do you have on a typical day when you are drinking?: 3 or 4 3. How often do you have six or more drinks on one occasion?: Never Total Score: 1 Score Reviewed/Action Taken: Yes QUE-7 AMB Questionnaire QUE-7 Date QUE - 7 assessed: 11/18/24 Feeling nervous, anxious, or on edge: 0 = Not at all Not being able to stop or control worryin = Not at all Worrying too much about different things: 0 = Not at all Trouble relaxin = Not at all Being so restless that it is hard to sit still: 0 = Not at all Becoming easily annoyed or irritable: 0 = Not at all Feeling afraid as if something awful might happen: 0 = Not at all Total QUE-7 score (0-4 normal; 5-9 mild; 10-14 moderate; 15-21 severe): 0 Source: Developed by Drs. Angel Cortez, Nitza Langford, Javier Leal and colleagues, with an educational bernarda from [employer]. Review of Systems Const Denies chills, Denies fatigue, Denies fever(s) and Denies headache(s) ENT Denies dysphagia, Denies dizziness, Denies otalgia, Denies headache(s), Denies neck pain, Denies odynophagia and Denies sore throat Card Denies chest pain, Denies palpitations and Denies dyspnea Resp Denies cough and Denies dyspnea GI Denies abdominal pain, Denies constipation, Denies dysphagia, Denies heartburn, Denies diarrhea, Denies nausea, Denies odynophagia and Denies vomiting Denies dysuria, Denies nocturia and Denies urinary frequency Musc Denies back pain, Reports arthralgias (occasionally, in the knees) and Denies neck pain Skin/Breast Denies rash Neuro Denies dizziness and Denies headache(s) Endo Denies fatigue and Denies palpitations Physical exam (Primary Care) Vital Signs: Last Vital Signs Pulse 67 11/18/24 15:07 BP 116/80 11/18/24 15:07 Pulse Ox 97 11/18/24 15:07 Oxygen Delivery Method Room Air 11/18/24 15:07 BMI result Body Mass Index 27.8 Tobacco/Smoking Status: Tobacco use Status Tobacco use date assessed 11/18/24 11/18/24 15:09 Patient Tobacco Use Status Never used Tobacco 11/18/24 15:09 e-Cigarette/Vaping Use Never Used 11/18/24 15:09 PHQ-9: PHQ-9 Score PHQ-9: Total score 0 11/18/24 15:30 Depression Screening Interpretation: Negative Thrive Assessment: Date of Thrive Assessment Date Thrive assessed 11/18/24 11/18/24 15:09 Currently or been in a relationship where the following occur: No concerns reported Const General: no acute distress and alert HENMT Ears: TM's normal bilaterally and EAC's normal Throat: Yes posterior oropharynx normal and Yes tonsils normal (no TP congestion noted) Neck Neck: Yes supple and No lymphadenopathy Thyroid: Thyroid normal Resp Auscultation: clear to auscultation bilaterally, no rales and no wheezes Cardio Rate: regular rate Rhythm: regular rhythm Heart sounds: no murmurs GI Palpation (GI): Soft to palpation and nontender Auscultation: normal bowel sounds General: Yes no CVA tenderness Back/Spine/Pelvis Back: no CVA tenderness Thoracic/Lumbar Spine: No lumbar spinal tenderness Skin Rashes: no rashes Extrem General: Yes no clubbing, cyanosis or edema Results Reviewed Results Reviewed: Laboratory Tests 11/17/24 11/17/24 06:58 06:59 WBC 6.7 Hgb 14.4 Hct 42.6 Plt Count 327 Sodium 141 Potassium 4.4 Creatinine 0.90 Estimated GFR > 60 Fasting Glucose 104 H Calcium 9.4 AST 17 ALT 27 Triglycerides 149 Cholesterol 191 LDL Cholesterol, Calc 117 H HDL Cholesterol 45 25-OH Vitamin D Total 35.1 TSH 5.56 H Free T4 0.81 Ur Specific [place] 1.025 Urine Protein Negative Urine Glucose (UA) Negative Urine Blood Negative Urine Nitrite Negative Ur Leukocyte Esterase Negative Coding Level of Care Code Est Pt Level 4 (91803) Diagnoses Pure hypercholesterolemia E78.00 Benign essential hypertension I10 Impaired fasting glucose R73.01 Bojorquez's esophagus without dysplasia K22.70 Bojorquez's esophagus type: without dysplasia Mild anemia D64.9 Mild persistent asthma without complication J45.30 Asthma complication type: uncomplicated Asthma persistence: persistent Asthma severity: mild Nonintractable headache, unspecified chronicity pattern, unspecified headache type R51.9 Headache chronicity pattern: unspecified pattern Headache type: unspecified Intractability: not intractable Vitamin D deficiency E55.9 Erectile dysfunction, unspecified erectile dysfunction type N52.9 Erectile dysfunction type: unspecified Overweight (BMI 25.0-29.9) E66.3 Additional Codes PHQ-9 - 27082 - PHQ-9 Billing: Yes ([id number]) Assessment & Plan Assessment & Plan (1) Pure hypercholesterolemia: Code(s): E78.00 - Pure hypercholesterolemia, unspecified Category: Medical Plan: Results of his labs done yesterday reviewed and discussed with patient - he is cautioned that his cholesterol levels have increased slightly from previous Reinforced low cholesterol diet Continue Atorvastatin 20 mg QD for now Will recheck his labs and fasting lipids in 4 months for follow up (2) Benign essential hypertension: Code(s): I10 - Essential (primary) hypertension Category: Medical Plan: Reinforced low sodium diet - goal is systolic BP of 120 mm or less He has been able to keep his blood pressure under control with diet modification/restriction alone so far Patient is reminded to continue monitoring his blood pressure regularly (3) Impaired fasting glucose: Code(s): R73.01 - Impaired fasting glucose Category: Medical Plan: His FBS was still slightly elevated at 104 mg/dl on his labs done yesterday His HgbA1c was normal at 5.4% and 5.2% when previously checked Reinforced low calorie diet/exercise as tolerated (4) Bojorquez's esophagus: Code(s): K22.70 - Bojorquez's esophagus without dysplasia Category: Medical Qualifiers: Bojorquez's esophagus type: without dysplasia Qualified Code(s): K22.70 - Bojorquez's esophagus without dysplasia Plan: EGD with biopsy done on 09/26/2016 and 02/22/[address] Cortés He was seen for follow up in May [address] Cortés and was advised to double up on his Omeprazole to 40 mg QD; he eventually underwent repeat EGD in January 2023, which came out negative His repeat colonoscopy is not due until 2026 He is currently back on Omeprazole 20 mg QD Follow up with Dr. Cortés as scheduled (5) Mild anemia: Code(s): D64.9 - Anemia, unspecified Category: Medical Plan: Anemia work ups done previously all came out negative; his recent CBC came back normal Will continue to monitor his CBC regularly - will recheck CBC in 4 months for follow up (6) Asthma: Code(s): J45.909 - Unspecified asthma, uncomplicated Category: Medical Qualifiers: Asthma complication type: uncomplicated Asthma persistence: persistent Asthma severity: mild Qualified Code(s): J45.30 - Mild persistent asthma, uncomplicated Plan: Controlled Chest x-rays done a couple of years ago to evaluate his recurrent coughing back then came out normal; his cough has since resolved Continue Symbicort 80-4.5 mcg 2 inhalations BID and Albuterol HFA 2 puffs 4 times a day as needed (7) Headache: Code(s): R51.9 - Headache, unspecified Category: Medical Qualifiers: Headache chronicity pattern: unspecified pattern Headache type: unspecified Intractability: not intractable Qualified Code(s): R51.9 - Headache, unspecified Plan: He is reassured that his head CT done last year came out normal with no evidence of an intracranial aneurysm Patient states that his headache have gradually cleared up since his last visit and have not been bothering him for a while now (8) Vitamin D deficiency: Code(s): E55.9 - Vitamin D deficiency, unspecified Category: Medical Plan: Continue Vitamin D3 2000 units QD (9) Erectile dysfunction: Code(s): N52.9 - Male erectile dysfunction, unspecified Category: Medical Qualifiers: Erectile dysfunction type: unspecified Qualified Code(s): N52.9 - Male erectile dysfunction, unspecified Plan: Continue Tadalafil 5 mg QD PRN Testosterone level checked last year came back normal (10) Overweight (BMI 25.0-29.9): Code(s): E66.3 - Overweight Category: Medical Plan: Reinforced diet/exercise as tolerated/lose weight Plan Follow up in 4 months
== END 2024-11-18 15:37 | disposition home or self-care (01) ==
LOC: HO.HMCH 15:06
PROVIDERS: PCP Internal Medicine; Visit Provider Internal Medicine
DX: E78.00 Pure hypercholesterolemia, unspecified (principal); I10 Essential (primary) hypertension; R73.01 Impaired fasting glucose; K22.70 Barrett's esophagus without dysplasia; D64.9 Anemia, unspecified; J45.30 Mild persistent asthma, uncomplicated; R51.9 Headache, unspecified; E55.9 Vitamin D deficiency, unspecified; N52.9 Male erectile dysfunction, unspecified; E66.3 Overweight

== ENCOUNTER → 2024-11-18 15:05 | Outpatient (BNVA) | payer BC, SELFPAY | PROVIDERS: PCP Internal Medicine; Visit Provider Internal Medicine | DX: E78.00 Pure hypercholesterolemia, unspecified (principal); I10 Essential (primary) hypertension; R73.01 Impaired fasting glucose; K22.70 Barrett's esophagus without dysplasia; D64.9 Anemia, unspecified; J45.30 Mild persistent asthma, uncomplicated; R51.9 Headache, unspecified; E55.9 Vitamin D deficiency, unspecified; N52.9 Male erectile dysfunction, unspecified; E66.3 Overweight; Z68.27 Body mass index [BMI] 27.0-27.9, adult; Z79.899 Other long term (current) drug therapy | CPT/HCPCS: 96127 ==

== ENCOUNTER 2025-06-09 06:40 | Outpatient (REF) | payer BC, SELFPAY ==
--- OUTSIDE RECORDS SUMMARY | 2024-08-27 12:33 | XMS_ITS | Encounter Summary ---
Author Organization [facility] Address [address] [place] [address] Phone Care Team Providers Care Fermenter Champagne Name Role Phone Jamal Landa MD Primary Care Provider [phone] Encounter Details Date Type Department Care Team (Late st Contact Info) Description 08/27/2024 11:33 AM [facility] Hospital Encounter [facility] Ur[facility] Care [address] [place] [phone] Shari Pompa, NUCLEAR POWERPLANT MECHANIC [address] [place] [address] [email or web address] Social History Tobacco Use Types Packs/Day Years [...] abnormality. IMPRESSION: No acute abnormality. Shari Pompa NUCLEAR POWERPLANT MECHANIC IMG XR CHEST Final R esult documented in this encounter Visit Diagnoses Not on filedocumented in this encounter Additional Health Concerns Infection Onset Date Last Indicated Resolved Time CoV-Risk 08/27/2024 08/27/2024 09/07/2024 1:24 AM EST RSV 08/27/2024 08/27/2024 09/03/2024 1:22 AM EST documented as of this encounter Care Teams Fermenter Champagne Relationship Specialty Start Date End Date Jamal Landa MD [address] [place] [address] Dr Shaw, [place] [address] PCP - General Internal Medicine 09/30/19 documented as of this encounter Additional Source Comments The information contained in this document represents components of the legal health record. It is not the complete legal health record.[facility]
--- OUTSIDE RECORDS SUMMARY | 2025-06-09 06:43 | XMS_ITS | Clinical Summary ---
Author Organization [facility] Address [address] [place] [id number] Phone Care Team Providers Care Charging Car Operator Name Role Phone Jamal Landa MD Primary Care Provider [phone] Allergies Active Allergy Reactions Criticality Noted Date Comments Cat Hair Std Allergenic Ext Sneezing High 08/27/19 25 Itchy eyes, congestion Medications atorvastatin (LIPITOR) 20 MG tablet TK 1 T PO ONCE D 06/26/20 19 Active SYMBICORT 80-4.5 mcg/actuation inhaler INL 2 PFS PO BID 07/29/20 19 Active omeprazole (PRILOSEC) 20 MG capsuleIndicat ions:gastroeso phageal reflux disease Take 20 mg by mouth daily. Indications: gastroesophageal reflux disease Active neomycin-polym yxin B-hydrocortiso ne (CORTOMYCIN) 3.5-10,000-1 mg/mL-unit/mL- % otic suspension INSTILL 4-5 DROPS INTO THE LEFT EAR EVERY DAY DIRECTED 07/30/20 24 Active Social History Tobacco Use Types Packs/Day Years [...] on file Sexual Orientation Not on file Last Filed Vital Signs Vital Sign Reading Time Taken Comments Blood Pressure 120/82 08/27/2024 11:23 AM EST Pulse 79 08/27/2024 11:23 AM EST Temperature 37.2 C (99 F) 08/27/2024 11:23 AM EST Respiratory Rate 17 08/27/2024 11:23 AM EST Oxygen Saturation 97% 08/27/2024 11:23 AM EST Inhaled Oxygen Concentration - - Weight 77.1 kg (170 lb) 02/18/2020 9:50 AM EDT Height 170.2 cm (5' 7 ) 02/18/2020 9:50 AM EDT Body Mass Index 26.63 02/18/2020 9:50 AM EDT Plan of Treatment Health Maintenance Due Date Last Done Comments Adult Td,Tdap Booster 1966 LIPID PANEL 1966 DEPRESSION SCREENING 1978 HEPATITIS C SCREENING 02/21/1984 HIV ONE-TIME SCREENING (18-65 YEARS) 02/21/1984 COLOGUARD 2011 COLONOSCOPY 2011 COLORECTAL CANCER SCREENING 2011 FIT TEST 2011 FOBT 2011 SIGMOIDOSCOPY 2011 VIRTUAL COLONOSCOPY 2011 PNEUMOCOCCAL VACCINES (50+ years) (1 of 1 - PCV) 02/21/2016 ZOSTER VACCINES (1 of 2) 02/21/2016 INFLUENZA VACCINE (#1) 2025 3, 07/03/2021, 05/19/2020, Additional history exists COVID-19 VACCINE (3 - 2024- season) 2025 12/04/2020, 11/13/2020 RSV VACCINE (1 - 1-dose 75+ series) 2041 SMOKING STATUS SCREENING (Once After 26 Yrs) Completed 02/22/2020 HEPATITIS A VACCINES Aged Out No long er eligible based on patient's age to complete this topic HIB VACCINES Aged Out No longer eligi ble based on patient's age to complete this topic MENINGOCOCCAL VACCINES (ACWY) Aged Out No longer eligible based on patient's age to complete this topic MENINGOCOCCAL VACCINES (B) Aged Out N o longer eligible based on patient's age to complete this topic Medical Devices Not on file Insurance [facility] [place] [employer] [facility] Care Teams Charging Car Operator Relationship Specialty Start Date End Date Cordell, Jamal Sy, MD [address] [place] [address] Dr Shaw, [place] [id number] PCP - General Internal Medicine 09/30/19 Additional Source Comments The information contained in this document represents components of the legal health record. It is not the complete legal health record.[facility]
--- OUTSIDE RECORDS SUMMARY | 2025-06-09 06:43 | XMS_ITS | Data Portability ---
Author Organization [place] - [facility], Allergy Address [address] [address] Care Team Providers Care Nurse Aide Evaluator Name Role Phone BEVERLEY RAMIREZ Primary Care Provider FIDE REIS Referring Provider Assessment Encounter Date Assessment Date Assessment LastModified by Organization Details LastModified Time 10/22/2024 10/22/2024 Patient with an enormous left canal wall down mastoidectomy which was reevaluated today under the binocular microscope. Residual squamous debris removed. No signs of acute or chronic inflammation. CT scan of the head that had been done previously was reviewed with the patient. At the time of the scan there was a large amount of debris within his mastoid cavity. There appears to be an additional potentially expansile component along the superior margin of the mastoid cavity with erosion of the tegmen tympani and possible breakdown of the bone adjacent to the middle cranial fossa dura. This area is not able to be visualized under the binocular microscope due to its position. I have recommended a dedicated CT scan of the temporal bone to assess this area further. This area may have been evacuated with routine cleaning, or it may represent a trapped cyst that would need further surgery. We will arrange for the CT scan and see him back after it is completed. This could be done in our office if his insurance company allows for that. [email or web address] Not available 10/22/2024 11:34:05 12/15/2024 12/15/2024 Patient with history of left canal wall down mastoidectomy cavity. CAT scan of the temporal bones today shows an enormous cavity with significant superior extension up to the squamous temporal bone. While there may be dural dehiscence, there is no sign of encephalocele. Overall no signs of recurrent cholesteatoma. I suspect that the CAT scan done previously was simply noting the large amount of squamous debris in the cavity which has since been removed. At this point I would not recommend any additional intervention other than preventative cleaning. Recommend follow-up in 6 months with me for next cleaning. We did discuss the possibility that if he is prone to chronic recurrent impactions or recurrent discharge, then a meatoplasty may be useful in widening the ear canal to accommodate this very large cavity. [email or web address] Not available 12/15/2024 09:05:00 Plan of Treatment Reminders Order Date Submit Date Provider Last Modified By Organization Details Last Modified Time Details Appointments Establish ed 10 2024 01:30P M JACOB CRAVEN MD Not available Not available Not available Lab None recorded. Referral None recorded. Procedures None recorded. Surgeries None recorded. Imaging CT, temporal bone, w/o contrast 2024 025 Not available 10/23/2024 09:39:12 Medication Orders None recorded. Patient TargetsNo targets recorded. Patient InstructionsNo instructions recorded. Reason for Referral None Reported. Results Created Date Observation Date Name Description Value Unit Range Abnormal Flag Note LastModifiedBy Organization Detail LastModifiedTime 01/01/2012/15/2024 CT, tempo ral bone, w/o contr ast No observ ation record ed. [email or web address] [facility] [address] [facility] 100, [place], [address], 01/01/2025 14:57:14 Result Notes None recorded. Problems Name Problem SNOMED Code Status Onset Date Resolution Date Notes Provider Name and Address Organization Details Recorded Time Sensorineur al hearing loss in right ear 3520970977367 0 Active 2023 JORGE ALBERTO SHERMAN , AUD [address] [address], [place], [address], 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 - [facility] [place] 4 14:27:08 Marginal perforation of left tympanic membrane 9418889415200 106 Active 2023 JACOB CRAVEN MD 100 [facility] [address] [facility], [place], [address], [facility] - [facility] [place] 4 15:12:48 Adhesive otitis media of left middle ear 0373744956594 102 Active 2023 JACOB CRAVEN MD 100 [facility],[address], [place], [address], [facility] - [facility] [place] 4 15:12:55 Postmastoid ectomy complicatio n 75457981 Active 2023 JACOB CRAVEN MD 100 [facility],[address], [place], [address], [facility] - [facility] 4 15:17:39 Problem Notes None recorded. Procedures Surgical History Date Name Laterality Status Provider Name and Address Organization Details Recorded Time 5 CT temporal bones - Xoran completed JACOB CRAVEN MD 100 [facility],[address], [address], [facility] - [facility] 12/15/2024 08:45:21 5 Debridement of Mastoid Cavity left completed JACOB CRAVEN MD 100 [facility],[address], [address], [facility] - [facility] 10/22/2024 11:23:49 4 Comp Audio with Tymps - 34579 & 85972 completed ALEXIS MONROY 100 [facility],[address], [address], [facility] - [facility] [place] 08/06/2024 14:26:36 4 Debridement of Mastoid Cavity complex left completed JACOB CRAVEN MD 100 [facility],[address], [address], [facility] - [facility] 08/06/2024 15:07:49 Imaging Results None recorded. Procedure Notes None recorded. Medical Equipment None Reported. Allergies No known drug allergies Medications Name Sig Start Date Stop Date Status Note LastModified by Organization Details LastModified Time atorvastati n 20 mg tablet TAKE 1 TABLET BY MOUTH DAILY active Not Available Not Available No t Available amoxicillin 875 mg tablet TAKE 1 TABLET BY MOUTH TWICE DAILY 08/06 completed Not Available Not Available Not Available benzonatate 100 mg capsule 10/22 completed Not Available Not Available Not Available omeprazole 20 mg capsule,del ayed release TAKE 1 CAPSULE BY MOUTH TWICE DAILY 30 MINUTES BEFORE BREAKFAST active Not Available Not Available No t Available neomycin-po lymyxin-hyd rocort 3.5 mg-10,000 unit/mL-1 % ear drops,susp INSTILL 4-5 DROPS INTO THE LEFT EAR EVERY DAY DIRECTED 09/22 completed Not Available Not Available Not Available budesonide- formoterol HFA 80 mcg-4.5 mcg/actuati on aerosol inhaler INHALE 2 PUFFS BY MOUTH TWICE DAILY active Not Available Not Available No t Available Vitals Date Recorded Body height Body weight Provider Name and Address Organization Details Last Updated DateTime 10/22/2024 167.64 cm 59722.7 g Daksha Oshea [place] [facility] 10/22/2024 10:51:36 Date Recorded Body height Body mass index (BMI) Body weight Provider Name and Address Organization Details Last Updated DateTime 12/15/2024 167.64 cm 27.4 kg/m2 64068.7 g Daksha Oshea [facility] 12/15/2024 08:22:02 Social History None recorded. Functional Status None recorded. Mental Status None recorded. Family History Nothing Reported. Medical History Condition Response Allergies/Hayfever Y Heart Problems N Anxiety N Tonsil Infections N Emphysema N Migraines N Thyroid Problems N Glaucoma N Depression N COPD N Developmental Delay N Nasal or Sinus Problems N Anemia N Immune System Disorder N Anesthesia Complications N Heart Attack ([place]) N Other Skin Condition N Diabetes N Rhinitis N Bleeding Disorder N Food Allergy N Arthritis N Hearing Loss Y Hyperlipidemia N Cancer N Stroke N Dementia N Nasal polyps N Asthma Y Sleep Disorder N GERD/Reflux Y High Cholesterol Y Liver Disease N Headaches Y Fibromyalgia N Hypertension N Speech Delay N Kidney Disease N Past Encounters Encounter ID Performer Location Encounter Start Date Encounter Closed Date Diagnosis/Indication Diagnosis SNOMED-CT Code Diagnosis ICD10 Code Diagnosis IMO Codes Diagnosis Note [id number] JACOB CRAVEN MD [facility] [address] [place] [address] 08/06/2024 13:37:31 08/06/2024 15:14:54 Sensorineural hearing loss in right ear 1408838419 9100 H90.A21 Minimal right sided sensorineu ral hearing loss Mixed cond uctive and sensorineural hearing loss of left ear 8491455376 9107 H90.A32 Audiologic al evaluation results:Ri ght ear:Normal through 3 kHz sloping to a moderate sensorineu ral hearing loss with excellent word recognitio n.Left ear:Modera te sloping to profound mixed hearing loss with excellent word recognitio n. Tympanomet ry:Right Ear:Type ALeft Ear:Type B with large volumeAudi ometric testing reviewed with the patient. He would be an excellent candidate to consider left-sided amplificat ion. 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 Marginal p erforation of left tympanic membrane 0881576802 001332 H72.2X2 Small long-term perforatio n present, no need for interventi on in this regard. 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 Demos used: Infinio Sphere(the large power dome was not big enough for his canal) Patient motivation : He has never worn a hearing aid. Given that he has a great benefit, he would like the opportunit y to hear better. When I took the demo out to take the impression he was shocked. Purchased? yes Ordered:Azeem onak Infinio [id number] Power rec #1LImpress ion taken without incident. Dr. Sampson did a great job packing. I need to get prior authorizat ion from [facility] and then I will call him to schedule his LEE ANN. [id number] JACOB CRAVEN MD [facility] [address] [address] 10/22/2024 10:43:07 10/22/2024 11:32:43 Postmastoidectomy complication 78293901 H95.192 Mixed cond uctive and sensorineural hearing loss of left ear 9279832359 9107 H90.A32 Patient will be following up with audiology for hearing aid for the left ear. Marginal p erforation of left tympanic membrane 7867891371 103004 H72.2X2 Small long-term perforatio n present, no need for interventi on in this regard. Adhesive o titis media of left middle ear 4033093680 841213 H74.12 Sensorineu ral hearing loss in right ear 8959929499 9100 H90.A21 Minimal right sided sensorineu ral hearing loss [id number] ALEXIS MONROY [facility] [place] [address] [place] [address] [place] [address] 11/17/2024 15:48:07 11/23/2024 13:43:35 Mixed conductive and sensorineural hearing loss of left ear 3279965474 9107 H90.A32 Hearing Aid Orientatio n Manufactur er: Phonak Infinio 90 SphereColo r: Sand beigeEarpi iesha: Power c-shell Serial NumbersRig ht: NALeft: [id number] Warranty: 12/04/2027 Accessorie s: ChargerGo SHEA sph Real ear: audio direct done Reviewed:radha clay controlNot paired to phone Follow up 2-3 weeks.Miracle ent knows to call with any major problems. [id number] JACOB CRAVEN MD [facility] [address] [address] 12/15/2024 08:14:48 12/15/2024 09:03:17 Postmastoidectomy complication 63394295 H95.192 Marginal p erforation of left tympanic membrane 0076265306 922592 H72.2X2 Small long-term perforatio n present, no need for interventi on in this regard. Mixed cond uctive and sensorineural hearing loss of left ear 8341240983 9107 H90.A32 Patient will be following up with audiology for hearing aid for the left ear. [id number] JORGE ALBERTO SHERMAN ALEXIS [facility] [place] 100 [facility], ite [address] [place] [place] [address] 12/15/2024 08:14:48 12/15/2024 09:03:17 Mixed conductive and sensorineural hearing loss of left ear 1667321559 9107 H90.A32 Hearing Aid Orientatio n Manufactur er: Phonak Infinio 90 SphereColo r: Sand beigeEarpi iesha: Power c-shell Serial NumbersRig ht: NALeft: [id number] Warranty: 12/04/2027 Accessorie s: ChargerGo SHEA sph Real ear: audio direct done Reviewed:radha clay controlNot paired to phone Follow up 2-3 weeks.Miracle ent knows to call with any major problems. Health Concerns Section Related Observation LastModified by Organization Detai ls LastModified Time None Recorded Concern Status LastModified by Organization Details LastModified Time None Recorded Advance Directives Directive None Recorded Payers Insurance Date Sequence Insurance Name Policy Number Policy [place] Covered Member ID [place] Member ID Guarantor Name 12/15/2024 1 [facility] [employer] [id number] Juan Diego Mao [id number] Juan Diego Mao Notes Date Note Type Note Provider Name and Address Organization Details Recorded Time 10/22/2024 text/html 59-year-old male, long-term patient of Dr. Reis. Patient has a left-sided canal wall down mastoidectomy cavity which was debrided of a large amount of very hard debris at his last visit back in mid July. Patient returns for reevaluation to assess for the rate of squamous debris accumulation in his mastoid cavity. He had a prior CAT scan which was concerning for recurrent cholesteatoma but I felt was likely simply secondary to the presence of mastoid debris. I asked him to bring the disc with these images with him to this visit today.Patient reports that he did have discharge from the ear for ear 6 to 7 days following the ear cleaning at his last visit, but this subsided on its own. No current discharge.Patient did have a hearing aid evaluation and is proceeding with getting a hearing aid for the ear. JACOB CRAVEN MD 100 [facility],[address], [address], [facility] - [facility] 10/22/2024 11:35:19 12/15/2024 text/html Patient with extremely large left canal wall down mastoidectomy cavity. He has had prior CAT scan which was concerning for recurrent cholesteatoma which was actually equivocal due to the presence of squamous debris in the cavity. The cavity was thoroughly debrided at his last visit back in July and he comes back today for CAT scan of the temporal bones to assess for possible cholesteatoma in the superior margin of the mastoid cavity with possible erosion of the tegmen tympani. JACOB CRAVEN MD 100 [facility] 100, [place], [address], [facility] - [facility] 12/15/2024 09:05:39
--- OUTSIDE RECORDS SUMMARY | 2025-06-09 06:43 | XMS_ITS | Encounter Summary ---
Author Organization [facility] Address [address] [place] [address] Phone Care Team Providers Care Staff Mechanical Engineer Name Role Phone Jamal Landa MD Primary Care Provider [phone] Encounter Details Date Type Department Care Team (Late st Contact Info) Description 02/22/2020 Procedure Pass [facility]oscopy Admitting Dept Virtual Department [address] [place] [address] Social History Tobacco Use Types Packs/Day Years Used Date Smoking Tobacco: Never Smokeless Tobacco: Never Alcohol Use Standard Drinks/Week Comments Yes 2 (1 standard drink = 0.6 oz pur e alcohol) Sex and Gender Information Value Date Recorded Sex Assigned at Not on file Legal Sex Male 9:40 PM EDT Gender Identity Not on file Sexual Orientation Not on file documented as of this encounter Plan of Treatment Not on file documented as of this encounter Visit Diagnoses Not on filedocumented in this encounter Additional Health Concerns Infection Onset Date Last Indicated Resolved Time CoV-Risk 08/27/2024 08/27/2024 09/07/2024 1:24 AM EST RSV 08/27/2024 08/27/2024 09/03/2024 1:22 AM EST documented as of this encounter Care Teams Staff Mechanical Engineer Relationship Specialty Start Date End Date Jamal Landa MD [address] [place] [address] [place] [address] PCP - General Internal Medicine 09/30/19 documented as of this encounter Additional Source Comments The information contained in this document represents components of the legal health record. It is not the complete legal health record.[facility]
[2025-06-09 06:48] LABS: MANUAL DIFF FLAG NO
[2025-06-09 07:36] LABS: Appearance Urine Clear; Glucose Urine UA Negative (Negative); PH 5.0 (5.0-9.0); Specific Gravity - Urine 1.025 (1.005-1.025)
[2025-06-09 08:08] LABS: Hematocrit 42.0 % (42.0-52.0); Hemoglobin 14.1 g/dl (14.0-18.0); Imm Gran Abs Auto 0.20 X10*3/uL (0.00-0.03); Imm Gran Pct Auto 2.0 % (0.0-0.4); Lymphocytes Absolute Auto 3.1 X10*3/uL (1.2-4.9); Mean Corpuscular HGB Conc 33.6 g/dl (31.0-36.0); Mean Corpuscular Hemoglobin 30.3 pg (27.0-33.0); Mean Corpuscular Volume 90.1 fL (80.0-98.0); NRBC Abs Auto 0.000 X10*3/uL (0.0-0.012); NRBC Pct Auto 0.0 /100WBC (0.0-0.2); Platelet Count 324 X10*3/uL (160-400); Red Blood Count 4.66 X10*6/uL (4.60-5.80); White Blood Count 10.1 X10*3/uL (4.8-10.8)
[2025-06-09 08:40] LABS: Alanine Aminotransferase 32 U/L (0-40); Albumin Level 4.7 g/dL (3.5-5.0); Alkaline Phosphatase 73 U/L (39-117); Anion Gap 11 (12-20); Aspartate Amino Transferase 22 U/L (5-37); Blood Urea Nitrogen 15 mg/dL (9-16); Calcium 9.6 mg/dL (8.4-10.2); Carbon Dioxide 28 mmol/L (22-29); Chloride 107 mmol/L (96-108); Cholesterol 188 mg/dL (<200); Estimated Glomerular Filt Rate > 60; HDL Cholesterol 40 mg/dL (>40); Potassium 4.1 mmol/L (3.3-5.1); Sodium 142 mmol/L (135-145); Total Protein 7.1 g/dL (6.5-8.0); Triglycerides 265 mg/dL (<150)
[2025-06-09 09:49] LABS: Free T4 (Free Thyroxine) 0.81 ng/dL (0.71-1.85)
== END 2025-06-09 06:41 | disposition home or self-care (01) ==
LOC: HO.LAB 06:40
PROVIDERS: PCP Internal Medicine; Visit Provider Internal Medicine
DX: N40.1 Benign prostatic hyperplasia with lower urinary tract symptoms (principal); E78.5 Hyperlipidemia, unspecified; K21.9 Gastro-esophageal reflux disease without esophagitis; R00.2 Palpitations; R39.11 Hesitancy of micturition; E78.00 Pure hypercholesterolemia, unspecified; I10 Essential (primary) hypertension; R73.01 Impaired fasting glucose; K22.70 Barrett's esophagus without dysplasia; J45.30 Mild persistent asthma, uncomplicated; D64.9 Anemia, unspecified; E55.9 Vitamin D deficiency, unspecified; N52.9 Male erectile dysfunction, unspecified; E66.3 Overweight; R06.09 Other forms of dyspnea; R30.0 Dysuria; Z68.28 Body mass index [BMI] 28.0-28.9, adult
CPT/HCPCS: 36415; 80053; 80061; 81003; 82306; 84439; 84443; 85025; 96127

== ENCOUNTER 2025-06-09 15:14 | Outpatient (AMB) | payer BC, SELFPAY ==
--- OUTSIDE RECORDS SUMMARY | 2024-08-27 12:33 | XMS_ITS | Encounter Summary ---
Author Organization [facility] Address [address] [place] [address] Phone Care Team Providers Care Quality Assistant Name Role Phone Jamal Landa MD Primary Care Provider [phone] Encounter Details Date Type Department Care Team (Late st Contact Info) Description 08/27/2024 11:33 AM [facility] Hospital Encounter [facility]gent [facility] [address] [place] [phone] Shari Pompa, TIMBER RIDER [address] [place] [address] [email or web address] Social History Tobacco Use Types Packs/Day Years [...] abnormality. IMPRESSION: No acute abnormality. Shari Pompa TIMBER RIDER IMG XR CHEST Final R esult documented in this encounter Visit Diagnoses Not on filedocumented in this encounter Additional Health Concerns Infection Onset Date Last Indicated Resolved Time CoV-Risk 08/27/2024 08/27/2024 09/07/2024 1:24 AM EST RSV 08/27/2024 08/27/2024 09/03/2024 1:22 AM EST documented as of this encounter Care Teams Quality Assistant Relationship Specialty Start Date End Date Jamal Landa MD [address] [place] [address] Dr Shaw, [place] [address] PCP - General Internal Medicine 09/30/19 documented as of this encounter Additional Source Comments The information contained in this document represents components of the legal health record. It is not the complete legal health record.[facility]
[2025-06-09 15:27] VITALS: BP 120/80; PULSE 75; O2SAT 94; BMI 28.4
--- NOTE | 2025-06-09 15:27 | MHC.PC.OV ---
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: No Accompanied by: Self / Same As Patient Allergies No Known Allergies Allergy (Verified 06/09/25 15:48) Medication List - Last Reconciled 06/09/25 by Jamal Landa MD atorvastatin 20 mg PO DAILY budesonide-formoterol 80-4.5 mcg/actuation 2 puffs PO BID cholecalciferol (vitamin D3) 50 mcg PO DAILY 90 days omeprazole 20 mg PO DAILY Tobacco use date assessed: 06/09/25 Dental Screening Dental Screen Date: 06/09/25 Did you have a dental visit in the last 12 months?: No Did you have a dental problem in the last 6 months where you did not have access to dental care?: No Was dental information given to patient?: Patient has dentist HPI Reschedule hyperlipidemia, asthma, GERD HPI Details Patient comes in today for his follow-up visit States that he's had a couple of brief bouts of what he feels are palpitations over the past month or so, with his last episode about 2 weeks ago He describes his symptoms as a feeling that his heart was beating funny (different) but he did not recall that his heart felt like it was racing or skipping beats States that he just sat down and rested for a while when his symptoms occured and that they gradually resolved after about 10 to 15 minutes He denies any headaches or dizziness, including when he was experiencing his palpitations Denies any chest pains, no increased shortness of breath No nausea/vomiting, no abdominal pain No change in bowel habits noted Adds that he has been experiencing some urinary symptoms recently, including nocturia at times and some urinary hesitancy Would like to know if he had his PSA checked recently and if not, would like to have it ordered and he will go to get this done SAMANTHA He had his follow-up labs done earlier today - to discuss his results [facility] Medical History Erectile dysfunction Vitamin D deficiency Bojorquez's esophagus Normal colonoscopy (~09/26/16) Rupture of left kidney (~1981) Depression Asthma Overweight (BMI 25.0-29.9) Testicular discomfort Pure hypercholesterolemia Benign essential hypertension Impaired fasting glucose Surgical History History of esophagogastroduodenoscopy (EGD) History of appendectomy History of ear surgery Social History Housing: House Alcohol intake: current Alcohol intake frequency: a few times a week Patient Tobacco Use Status: Never used Tobacco e-Cigarette/Vaping Use: Never Used Second Hand Smoke Exposure: Yes service: No Current occupational status: employed Cognitive needs: No Hearing needs: No Vision needs: Yes (Reading Glasses) Questionnaire PHQ-9 Over the last 2 weeks, how often have you been bothered by any of the following problems? 1. Little interest or pleasure in doing things: not at all 2. Feeling down, depressed, or hopeless: not at all 3. Trouble falling or staying asleep, or sleeping too much: not at all 4. Feeling tired or having little energy: not at all 5. Poor appetite or overeating: not at all 6. Feeling bad about yourself - or that you are a failure or have let yourself or your family down: not at all 7. Trouble concentrating on things, such as reading the newspaper or watching television: not at all 8. Moving or speaking so slowly that other people could have noticed. Or the opposite - being so fidgety or restless that you have been moving around a lot more than usual: not at all 9. Thoughts that you would be better off or of hurting yourself in some way: not at all Total score: 0 Depression Screening Interpretation: Negative Depression Screening Done: Yes 21689 - PHQ-9 Billing: Yes Source: Developed by Drs. Angel Cortez, Nitza Langford, Javier Leal and colleagues, with an educational benrarda from [employer]. Thrive Questionnaire Date Thrive assessed: 11/18/24 I am a: Patient What is your living situation today?: I have a steady place to live Within the past 12 months, did the food you bought not last and you didn't have the money to get more?: Never true Within the past 12 months, did you worry whether your food would run out before you got money to buy more?: Never true Do you have trouble paying for medicines?: No Do you have trouble getting transportation to medical appointments?: No Do you have trouble paying your heating and electricity bill?: No Do you have trouble taking care of your child, family member or friend?: No Do you have trouble with day-to-day activities such as bathing, preparing meals, shopping, managing finances, etc.?: No Are you currently unemployed and looking for a job?: No Are you interested in more education?: No Please select the resources that you would like help with: None Currently or been in a relationship where the following occur: No concerns reported THRIVE Score: 0 AUDIT C Alcohol Use Questionnaire (AUDIT-C) 1. How often do you have a drink containing alcohol?: 2-4 times a month 2. How many drinks containing alcohol do you have on a typical day when you are drinking?: 3 or 4 3. How often do you have six or more drinks on one occasion?: Never Total Score: 3 Score Reviewed/Action Taken: Yes QUE-7 AMB Questionnaire QUE-7 Date QUE - 7 assessed: 11/18/24 Feeling nervous, anxious, or on edge: 3 = Nearly every day Not being able to stop or control worryin = Not at all Worrying too much about different things: 0 = Not at all Trouble relaxin = Not at all Being so restless that it is hard to sit still: 0 = Not at all Becoming easily annoyed or irritable: 0 = Not at all Feeling afraid as if something awful might happen: 0 = Not at all Total QUE-7 score (0-4 normal; 5-9 mild; 10-14 moderate; 15-21 severe): 3 Source: Developed by Drs. Angel Cortez, Nitza Langford, Javier Leal and colleagues, with an educational bernarda from [employer]. Review of Systems Const Denies chills, Denies fatigue, Denies fever(s) and Denies headache(s) ENT Denies dysphagia, Denies dizziness, Denies otalgia, Denies headache(s), Denies neck pain, Denies odynophagia and Denies sore throat Card Denies chest pain, Denies rapid heart rate, Reports palpitations (a couple of times recently - see HPI) and Denies dyspnea Resp Denies cough and Denies dyspnea GI Denies abdominal pain, Denies constipation, Denies dysphagia, Denies heartburn, Denies diarrhea, Denies nausea, Denies odynophagia and Denies vomiting Denies dysuria, Reports nocturia, Reports urinary frequency and Reports urinary hesitancy Musc Denies back pain, Reports arthralgias (occasionally, in the knees) and Denies neck pain Skin/Breast Denies rash Neuro Denies dizziness and Denies headache(s) Endo Denies fatigue and Reports palpitations (a couple of times recently - see HPI) Physical exam (Primary Care) Vital Signs: Last Vital Signs Pulse 75 06/09/25 15:27 BP 120/80 06/09/25 15:27 Pulse Ox 94 06/09/25 15:27 Oxygen Delivery Method Room Air 06/09/25 15:27 BMI result Body Mass Index 28.4 Tobacco/Smoking Status: Tobacco use Status Tobacco use date assessed 06/09/25 06/09/25 15:30 Patient Tobacco Use Status Never used Tobacco 06/09/25 15:30 e-Cigarette/Vaping Use Never Used 06/09/25 15:30 PHQ-9: PHQ-9 Score PHQ-9: Total score 0 06/09/25 15:54 Depression Screening Interpretation: Negative Thrive Assessment: Date of Thrive Assessment Date Thrive assessed 11/18/24 06/09/25 15:30 Currently or been in a relationship where the following occur: No concerns reported Const General: no acute distress and alert HENMT Ears: TM's normal bilaterally and EAC's normal Throat: Yes posterior oropharynx normal and Yes tonsils normal (no TP congestion noted) Neck Neck: Yes supple and No lymphadenopathy Thyroid: Thyroid normal Resp Auscultation: clear to auscultation bilaterally, no rales and no wheezes Cardio Rate: regular rate Rhythm: regular rhythm Heart sounds: no murmurs GI Palpation (GI): Soft to palpation and nontender Auscultation: normal bowel sounds General: Yes no CVA tenderness Back/Spine/Pelvis Back: no CVA tenderness Thoracic/Lumbar Spine: No lumbar spinal tenderness Skin Rashes: no rashes Extrem General: Yes no clubbing, cyanosis or edema Results Reviewed Results Reviewed: Laboratory Tests 06/09/25 06/09/25 06:45 06:47 WBC 10.1 Hgb 14.1 Hct 42.0 Plt Count 324 Sodium 142 Potassium 4.1 Creatinine 0.92 Estimated GFR > 60 Fasting Glucose 100 H Calcium 9.6 Total Bilirubin 1.2 H AST 22 ALT 32 Triglycerides 265 H Cholesterol 188 LDL Cholesterol, Calc 95 HDL Cholesterol 40 L 25-OH Vitamin D Total 43.0 TSH 6.27 H Free T4 0.81 Ur Specific [place] 1.025 Coding Level of Care Code Est Pt Level 4 (32050) Diagnoses Palpitations R00.2 Benign prostatic hyperplasia with urinary hesitancy N40.1; R39.11 Lower urinary tract symptom detail: urinary hesitancy Pure hypercholesterolemia E78.00 Benign essential hypertension I10 Impaired fasting glucose R73.01 Bojorquez's esophagus without dysplasia K22.70 Bojorquez's esophagus type: without dysplasia Mild anemia D64.9 Mild persistent asthma without complication J45.30 Asthma severity: mild Asthma persistence: persistent Asthma complication type: uncomplicated Vitamin D deficiency E55.9 Erectile dysfunction, unspecified erectile dysfunction type N52.9 Erectile dysfunction type: unspecified Overweight (BMI 25.0-29.9) E66.3 Additional Codes PHQ-9 - 83675 - PHQ-9 Billing: Yes ([id number]) Assessment & Plan Assessment & Plan (1) Palpitations: Code(s): R00.2 - Palpitations Category: Medical Plan: Will send patient for work ups, including chest x-rays, 12-lead EKG, 7 day Holter monitor and echocardiogram for further evaluation (2) Benign prostatic hyperplasia with lower urinary tract symptoms: Code(s): N40.1 - Benign prostatic hyperplasia with lower urinary tract symptoms Category: Medical Qualifiers: Lower urinary tract symptom detail: urinary hesitancy Qualified Code(s): N40.1 - Benign prostatic hyperplasia with lower urinary tract symptoms; R39.11 - Hesitancy of micturition Plan: Per request, serum PSA level ordered today and patient states that he will go to get this done SAMANTHA Will refer him to urology for further evaluation and management (3) Pure hypercholesterolemia: Code(s): E78.00 - Pure hypercholesterolemia, unspecified Category: Medical Plan: Results of his labs done earlier today reviewed and discussed with patient Reinforced low cholesterol diet Continue Atorvastatin 20 mg QD for now Will recheck his labs and fasting lipids in 4 months for follow up (4) Benign essential hypertension: Code(s): I10 - Essential (primary) hypertension Category: Medical Plan: Reinforced low sodium diet - goal is systolic BP of 120 mm or less He has been able to keep his blood pressure under control with diet modification/restriction alone so far Patient is reminded to continue monitoring his blood pressure regularly (5) Impaired fasting glucose: Code(s): R73.01 - Impaired fasting glucose Category: Medical Plan: His FBS was at 100 mg/dl on his labs done earlier today His HgbA1c was normal at 5.4% and 5.2% when previously checked Reinforced low calorie diet/exercise as tolerated (6) Bojorquez's esophagus: Code(s): K22.70 - Bojorquez's esophagus without dysplasia Category: Medical Qualifiers: Bojorquez's esophagus type: without dysplasia Qualified Code(s): K22.70 - Bojorquez's esophagus without dysplasia Plan: EGD with biopsy done on 09/26/2016 and 02/22/[address] Cortés He was seen for follow up in May [address] Cortés and was advised to double up on his Omeprazole to 40 mg QD; he eventually underwent repeat EGD in January 2023, which came out negative His repeat colonoscopy is not due until 2026 He is currently back on Omeprazole 20 mg QD Follow up with Dr. Cortés as scheduled (7) Mild anemia: Code(s): D64.9 - Anemia, unspecified Category: Medical Plan: Anemia work ups done previously all came out negative; his recent CBC came back normal again Will continue to monitor his CBC regularly - will recheck CBC in 4 months for follow up (8) Asthma: Code(s): J45.909 - Unspecified asthma, uncomplicated Category: Medical Qualifiers: Asthma severity: mild Asthma persistence: persistent Asthma complication type: uncomplicated Qualified Code(s): J45.30 - Mild persistent asthma, uncomplicated Plan: Controlled Chest x-rays done a couple of years ago to evaluate his recurrent coughing back then came out normal; his cough has since resolved Continue Symbicort 80-4.5 mcg 2 inhalations BID and Albuterol HFA 2 puffs 4 times a day as needed (9) Vitamin D deficiency: Code(s): E55.9 - Vitamin D deficiency, unspecified Category: Medical Plan: Continue Vitamin D3 2000 units QD (10) Erectile dysfunction: Code(s): N52.9 - Male erectile dysfunction, unspecified Category: Medical Qualifiers: Erectile dysfunction type: unspecified Qualified Code(s): N52.9 - Male erectile dysfunction, unspecified Plan: Continue Tadalafil 5 mg QD PRN Testosterone level checked last year came back normal (11) Overweight (BMI 25.0-29.9): Code(s): E66.3 - Overweight Category: Medical Plan: Reinforced diet/exercise as tolerated/lose weight Plan Follow up in 4 months Orders: Orders XR chest 2V 06/09/25 R00.2 - Palpitations CA echo transthoracic complete 06/09/25 R00.2 - Palpitations, R06.09 - Other forms of dyspnea ECG 7 day holter monitor 06/09/25 R00.2 - Palpitations TSH reflex Free T4 4 Months E78.00 - Pure hypercholesterolemia, unspecified Vitamin D 25-OH Total 4 Months E55.9 - Vitamin D deficiency, unspecified ECG 12 lead EKG 06/09/25 R00.2 - Palpitations Prostate Specific Antigen 06/09/25 N40.0 - Benign prostatic hyperplasia without lower urinary tract symptoms Complete Blood Count Auto Diff 4 Months D64.9 - Anemia, unspecified Comprehensive [place]. Panel Fast 4 Months E78.00 - Pure hypercholesterolemia, unspecified Lipid Panel 4 Months E78.00 - Pure hypercholesterolemia, unspecified UA CC w/rflx Micro + Cult 4 Months R30.0 - Dysuria Referrals Urology Referral N40.1 - Benign prostatic hyperplasia with lower urinary tract symptoms
--- OUTSIDE RECORDS SUMMARY | 2025-06-09 18:49 | XMS_ITS | Clinical Summary ---
Author Organization [facility] Address [address] [place] [id number] Phone Care Team Providers Care Nozzle Operator Name Role Phone Jamal Landa MD Primary Care Provider [phone] Allergies Active Allergy Reactions Criticality Noted Date [...] topic Medical Devices Not on file Insurance [facility] [employer] [facility] Care Teams Nozzle Operator Relationship Specialty Start Date End Date Cordell, Jamal Sy, MD [address] [place] [address] Dr Shaw, [place] [address] PCP - General Internal Medicine 09/30/19 Additional Source Comments The information contained in this document represents components of the legal health record. It is not the complete legal health record.[facility]
--- OUTSIDE RECORDS SUMMARY | 2025-06-09 18:49 | XMS_ITS | Encounter Summary ---
Author Organization [facility] Address [address] [place] [id number] Phone Care Team Providers Care Patient Biller Name Role Phone Jamal Landa MD Primary Care Provider [phone] Encounter Details Date Type Department Care Team (Late st Contact Info) Description 02/22/2020 Procedure Pass [facility] Endoscopy Admitting Dept Virtual Department [address] [place] [address] Social History Tobacco Use Types Packs/Day Years [...] documented as of this encounter Care Teams Patient Biller Relationship Specialty Start Date End Date Jamal Landa MD [address] [place] [address] [place] [address] PCP - General Internal Medicine 09/30/19 documented as of this encounter Additional Source Comments The information contained in this document represents components of the legal health record. It is not the complete legal health record.[facility]
== END 2025-06-09 16:10 | disposition home or self-care (01) ==
LOC: HO.HMCH 15:15
PROVIDERS: PCP Internal Medicine; Visit Provider Internal Medicine
DX: R00.2 Palpitations (principal); N40.1 Benign prostatic hyperplasia with lower urinary tract symptoms; R39.11 Hesitancy of micturition; E78.00 Pure hypercholesterolemia, unspecified; I10 Essential (primary) hypertension; R73.01 Impaired fasting glucose; K22.70 Barrett's esophagus without dysplasia; D64.9 Anemia, unspecified; J45.30 Mild persistent asthma, uncomplicated; E55.9 Vitamin D deficiency, unspecified; N52.9 Male erectile dysfunction, unspecified; E66.3 Overweight

== ENCOUNTER 2025-06-17 15:16 | Outpatient (REF) | payer BC, SELFPAY ==
--- OUTSIDE RECORDS SUMMARY | 2024-08-27 12:33 | XMS_ITS | Encounter Summary ---
Author Organization [facility] Address [address] [place] [address] Phone Care Team Providers Care Plastics Engineering Teacher Name Role Phone Jamal Landa MD Primary Care Provider [phone] Encounter Details Date Type Department Care Team (Late st Contact Info) Description 08/27/2024 11:33 AM [facility] Hospital Encounter [facility] Urgent Care [address] [place] [phone] Shari Pompa, CANE PUSHER [address] [place] [address] [email or web address] Social History Tobacco Use Types Packs/Day Years [...] Answer Date Recorded No 01/19/2023 No 01/19/2023 No 01/19/2023 Reliable internet access [...] abnormality. IMPRESSION: No acute abnormality. Shari Pompa CANE PUSHER IMG XR CHEST Final R esult documented in this encounter Visit Diagnoses Not on filedocumented in this encounter Additional Health Concerns Infection Onset Date Last Indicated Resolved Time CoV-Risk 08/27/2024 08/27/2024 09/07/2024 1:24 AM EST RSV 08/27/2024 08/27/2024 09/03/2024 1:22 AM EST documented as of this encounter Care Teams Plastics Engineering Teacher Relationship Specialty Start Date End Date Jamal Landa MD [address] [place] [address] Dr Shaw, [place] [address] PCP - General Internal Medicine 09/30/19 documented as of this encounter Additional Source Comments The information contained in this document represents components of the legal health record. It is not the complete legal health record.[facility]
--- NOTE | ~2025-06-17 | XR_ITS ---
EXAMINATION: XR CHEST CLINICAL INFORMATION: R00.2 - Palpitations COMPARISON: 07/04/2022. TECHNIQUE: 2 views of the chest were obtained. FINDINGS: The cardiac, hilar, and mediastinal contours are normal. The lungs are clear bilaterally. There is no pneumothorax or pleural effusion. There is no focal osseous or soft tissue abnormality. XR/XR chest 2V IMPRESSION: No active pulmonary disease. Electronically signed by: Willie Marquez MD 06/17/2025 03:58 PM EDT
--- NOTE | 2025-06-17 15:27 | ECG_ITS ---
Test Reason : palps Blood Pressure : */* mmHG Vent. Rate : 61 BPM Atrial Rate : 61 BPM P-R Int : 150 ms QRS Dur : 94 ms QT Int : 382 ms P-R-T Axes : 41 -39 8 degrees QTcB Int : 384 ms Normal sinus rhythm Left axis deviation Abnormal ECG No previous ECGs available Referred By: Jamal Lanad Electronically Signed By: YAYO KIM MD
[2025-06-17 16:21] LABS: Prostate Specific Antigen 0.60 ng/mL (<0.05-4.0)
--- OUTSIDE RECORDS SUMMARY | 2025-06-17 19:05 | XMS_ITS | Data Portability ---
Author Organization [place] - [facility], Allergy Address [address] [address] Care Team Providers Care Contemporary Or Modern Dancer Name Role Phone BEVERLEY RAMIREZ Primary Care [...] if his insurance company allows for that. [email or web address] Not available 10/22/2024 11:34:05 12/15/2024 12/15/2024 Patient [...] canal to accommodate this very large cavity. Not available 12/15/2024 09:05:00 Plan of Treatment Reminders Order Date Submit Date Provider Last Modified By Organization Details Last Modified Time Details Appointments Establish ed 10 2024 09:50A M JACOB CRAVEN MD Not available Not available Not available Lab None recorded. Referral None recorded. Procedures None recorded. Surgeries None recorded. Imaging CT, temporal bone, w/o contrast 2024 025 [email or web address] Not available 10/23/2024 09:39:12 Medication Orders None recorded. Patient TargetsNo targets recorded. Patient InstructionsNo instructions recorded. Reason for Referral None Reported. Results Created Date Observation Date Name Description Value Unit Range Abnormal Flag Note LastModifiedBy Organization Detail LastModifiedTime 01/01/2012/15/2024 CT, tempo ral bone, w/o contr ast No observ ation record ed. [email or web address] [facility] [address] [facility], [place], [address], 01/01/2025 14:57:14 Result Notes None recorded. 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 0894091547613 7 Active 2023 JORGE ALBERTO SHERMAN , AUD [address] [address], [place], [address], [facility] [place] 4 14:27:08 Marginal perforation of left tympanic membrane 3480769506050 106 Active 2023 JACOB CRAVEN MD 100 [facility],[address] [facility], [place], [address], [facility] [place] 4 15:12:48 Adhesive otitis media of left middle ear 8628489653088 102 Active 2023 JACOB CRAVEN MD 100 [facility],[address], [place], [address], [facility] [place] 4 15:12:55 Postmastoid ectomy complicatio n 94892124 Active 2023 JACOB CRAVEN MD 100 [facility],[address], [place], [address], [facility] - [facility] 4 15:17:39 Problem Notes None recorded. Procedures Surgical History Date Name Laterality Status Provider Name and Address Organization Details Recorded Time 5 CT temporal bones - Xoran completed JACOB CRAVEN MD 100 [facility],[address], [address], [facility] - [facility] 12/15/2024 08:45:21 5 Debridement of Mastoid Cavity left completed JACOB CRAVEN MD 100 [facility],[address], [address], [facility] - [facility] 10/22/2024 11:23:49 4 Comp Audio with Tymps - 62675 & 80081 completed ALEXIS MONROY 100 [facility],[address], [address], [facility] [place] 08/06/2024 14:26:36 4 Debridement of Mastoid Cavity complex left completed JACOB CRAVEN MD 100 [facility],[address], [address], [facility] - [facility] 08/06/2024 15:07:49 Imaging Results None recorded. Procedure [...] Details Last Updated DateTime 10/22/2024 167.64 cm 66926.7 g Daksha Oshea [place] - [facility] 10/22/2024 10:51:36 Date Recorded Body height Body mass index (BMI) Body weight Provider Name and Address Organization Details Last Updated DateTime 12/15/2024 167.64 cm 27.4 kg/m2 66507.7 g Daksha sOhea [facility] 12/15/2024 08:22:02 Social History None recorded. Functional Status None recorded. Mental Status None recorded. Family History Nothing Reported. Medical History Condition Response Allergies/Hayfever Y Heart Problems N Anxiety N Tonsil Infections N Emphysema N Migraines N Thyroid Problems N Glaucoma N Developmental Delay N Depression N COPD N Nasal or Sinus Problems N Anemia N Immune System Disorder N Anesthesia Complications N Heart Attack ([place]) N Other Skin Condition N Diabetes N Rhinitis N Bleeding Disorder N Food Allergy N Hearing Loss Y Arthritis N Hyperlipidemia N Cancer N Stroke N Dementia N Nasal polyps N Asthma Y Sleep Disorder N High Cholesterol Y GERD/Reflux Y Liver Disease N Headaches Y Fibromyalgia N Hypertension N Speech Delay N Kidney Disease N Past Encounters Encounter ID Performer Location Encounter Start Date Encounter Closed Date Diagnosis/Indication Diagnosis SNOMED-CT Code Diagnosis ICD10 Code Diagnosis IMO Codes Diagnosis Note [id number] JACOB CRAVEN MD [facility] [address] [place] [address] 08/06/2024 13:37:31 08/06/2024 15:14:54 Sensorineural hearing loss in right ear [id number] 9100 H90.A21 Minimal right sided sensorineu ral hearing loss Mixed cond uctive and sensorineural hearing loss of left ear 1828887178 9107 H90.A32 Audiologic al evaluation results:Ri ght [...] Marginal p erforation of left tympanic membrane 9588665670 026680 H72.2X2 Small long-term perforatio n present, no need for interventi on in this regard. 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 Purchased? yes Ordered:Azeem onak Infinio [id number] Power rec #1LImpress ion taken without incident. Dr. Sampson did a great job packing. I need to get prior authorizat ion from [facility] and then I will call him to schedule his LEE ANN. [id number] JACOB CRAVEN MD [facility] [address] [address] 10/22/2024 10:43:07 10/22/2024 11:32:43 Postmastoidectomy complication 39250624 H95.192 Mixed cond uctive and sensorineural hearing loss of left ear 4585083410 9107 H90.A32 Patient will be following up with audiology for hearing aid for the left ear. Marginal p erforation of left tympanic membrane 7405800042 261765 H72.2X2 Small long-term perforatio n present, no need for interventi on in this regard. Adhesive o titis media of left middle ear 1074511481 495913 H74.12 Sensorineu ral hearing loss in right ear 8466166897 9100 H90.A21 Minimal right sided sensorineu ral hearing loss [id number] ALEXIS MONROY [facility] [place] [address] [place] [address] [place] [address] 11/17/2024 15:48:07 11/23/2024 13:43:35 Mixed conductive and sensorineural hearing loss of left ear 3503007982 9107 H90.A32 Hearing Aid Orientatio n Manufactur er: Phonak Infinio 90 SphereColo r: Sand beigeEarpi iesha: Power c-shell Serial NumbersRig ht: NALeft: [id number] Warranty: 12/04/2027 Accessorie s: ChargerGo SHEA sph Real ear: audio direct done Reviewed:radha clay controlNot paired to phone Follow up 2-3 weeks.Miracle ent knows to call with any major problems. [id number] JACOB CRAVEN MD [facility] [address] [address] 12/15/2024 08:14:48 12/15/2024 09:03:17 Postmastoidectomy complication 44800292 H95.192 Marginal p erforation of left tympanic membrane 8348708092 924888 H72.2X2 Small long-term perforatio n present, no need for interventi on in this regard. Mixed cond uctive and sensorineural hearing loss of left ear 3611268600 9107 H90.A32 Patient will be following up with audiology for hearing aid for the left ear. [id number] JORGE ALBERTO SHERMAN ALEXIS [facility] [place] 100 [facility], ite [address] [place] [address] 12/15/2024 08:14:48 12/15/2024 09:03:17 Mixed conductive and sensorineural hearing loss of left ear 6158429155 9107 H90.A32 Hearing Aid Orientatio n Manufactur er: Phonak Infinio 90 SphereColo r: Sand beigeEarpi eisha: Power c-shell Serial NumbersRig ht: NALeft: [id number] Warranty: 12/04/2027 Accessorie s: ChargerGo SHEA sph [...] Member ID [place] Member ID Guarantor Name 06/14/2025 1 [facility]: [employer] [id number] Juan Diego Mao [id number] Juan Diego Mao Notes Date Note Type [...] for the ear. JACOB CRAVEN MD 100 [facility],[address], [address], [facility] - [facility] 10/22/2024 11:35:19 12/15/2024 text/html Patient with extremely [...] the tegmen tympani. JACOB CRAVEN MD 100 [facility] 100, [place], [address], [facility] - [facility] 12/15/2024 09:05:39
--- OUTSIDE RECORDS SUMMARY | 2025-06-17 19:05 | XMS_ITS | Encounter Summary ---
Author Organization [facility] Address [address] [place] [address] Phone Care Team Providers Care Labor Relations Teacher Name Role Phone Jamal Landa MD Primary Care Provider [phone] [phone] Encounter Details Date Type Department Care Team (Late st Contact Info) Description 02/22/2020 Procedure Pass [facility] Endoscopy Admitting Dept Virtual Department [address] [place] [address] Social History Tobacco Use Types Packs/Day Years [...] documented as of this encounter Care Teams Labor Relations Teacher Relationship Specialty Start Date End Date Jamal Landa MD [address] [place] [address] [place] [address] PCP - General Internal Medicine 09/30/19 documented as of this encounter Additional Source Comments The information contained in this document represents components of the legal health record. It is not the complete legal health record.[facility]
--- OUTSIDE RECORDS SUMMARY | 2025-06-17 19:05 | XMS_ITS | Clinical Summary ---
Author Organization [facility] Address [address] [place] [address] Phone Care Team Providers Care Alining Inspector Name Role Phone Jamal Landa MD Primary Care Provider [phone] [phone] Allergies Active Allergy Reactions Criticality Noted Date [...] topic Medical Devices Not on file Insurance [facility] [employer] [facility] Care Teams Alining Inspector Relationship Specialty Start Date End Date Cordell, Jamal Sy, MD [address] [place] [address] Dr Shaw, [place] [address] PCP - General Internal Medicine 09/30/19 Additional Source Comments The information contained in this document represents components of the legal health record. It is not the complete legal health record.[facility]
== END 2025-06-17 15:17 | disposition home or self-care (01) ==
LOC: HO.XRAY 15:16
PROVIDERS: PCP Internal Medicine; Visit Provider Internal Medicine
DX: R00.2 Palpitations (principal); N40.0 Benign prostatic hyperplasia without lower urinary tract symptoms; Z12.5 Encounter for screening for malignant neoplasm of prostate
CPT/HCPCS: 36415; 71046; 84153; 93005

== ENCOUNTER → 2025-06-17 15:27 | Outpatient (BNV) | payer BC, SELFPAY | PROVIDERS: PCP Internal Medicine; Visit Provider Internal Medicine Cardiovascular Disease | DX: R94.31 Abnormal electrocardiogram [ECG] [EKG] (principal); R00.2 Palpitations | CPT/HCPCS: 93010 ==

== ENCOUNTER → 2025-06-17 15:31 | Outpatient (BNV) | payer BC, SELFPAY | PROVIDERS: PCP Internal Medicine; Visit Provider Radiology Diagnostic Radiology | DX: R00.2 Palpitations (principal) | CPT/HCPCS: 71046 ==

== ENCOUNTER → 2025-07-28 12:41 | Outpatient (REF) | payer BC, SELFPAY ==
--- OUTSIDE RECORDS SUMMARY | 2024-08-27 11:33 | XMS_ITS | Encounter Summary ---
Author Organization [facility] Address [address] [place] [id number] Phone Care Team Providers Care Advertising Account Executive Name Role Phone Jamal Landa MD Primary Care Provider [phone] Encounter Details Date Type Department Care Team (Late st Contact Info) Description 08/27/2024 11:33 AM [facility] Hospital Encounter [facility] [address] [place] [address] Shari Pompa, STAVE GRADER [address] [place] [address] [email or web address] Social History Tobacco Use Types Packs/Day Years Used Date Smoking Tobacco: Never Smokeless Tobacco: Never Alcohol Use Standard Drinks/Week Comments Yes 2 (1 standard drink = 0.6 oz pur e alcohol) Education Answer Date Recorded Are you interested in more education? Not on faina e 12/21/2022 Are you concerned about learning? Not on file 12/21/2022 No 12/21/2022 No 12/21/2022 Digital Access Answer Date Recorded No 01/19/2023 No 01/19/2023 Reliable internet access at home? Not on file 01/19/2023 Device with a working camera? Not on file Sex and Gender Information Value Date Recorded Sex Assigned at Not on file Legal Sex Male 9:40 PM EDT Gender Identity Not on file Sexual Orientation Not on file documented as of this encounter Plan of Treatment Not on file documented as of this encounter Procedures Procedure Name Priority Date/Time Associated Diagnosis Comments XR CHEST PA AND LATERAL 2 VIEWS Urgent/patient waiting 08/27/2024 11:36 AM EST Cough documented in this encounter Results * XR CHEST PA AND LATERAL 2 VIEWS (08/27/2024 11:36 AM EST) Anatomical Region Laterality Modality Chest Computed Radiogr aphy 08/27/2024 11:5 8 AM EST Impressions 08/27/2024 11:59 AM EST No acute abnormality. Narrative 08/27/2024 11:59 AM EST XR CHEST PA AND LATERAL 2 VIEWS Referring clinician's provided indication for this examination in Epic: Cough COMPARISON: None FINDINGS: Devices/Tubes/Lines: None. Lungs: No focal consolidation or pulmonary edema. Pleura: No pleural effusion or pneumothorax. Heart/Mediastinum: Normal heart and mediastinum. Bones/Soft Tissues: No significant abnormality. Procedure Note Moris Gutierrez MD, PhD - 08/27/2024 XR CHEST PA AND LATERAL 2 VIEWS Referring clinician's provided indication for this examination in Epic:Cough COMPARISON: None FINDINGS: Devices/Tubes/Lines: None. Lungs: No focal consolidation or pulmonary edema. Pleura: No pleural effusion or pneumothorax. Heart/Mediastinum: Normal heart and mediastinum. Bones/Soft Tissues: No significant abnormality. IMPRESSION: No acute abnormality. Shari Pompa STAVE GRADER IMG XR CHEST Final R esult documented in this encounter Visit Diagnoses Not on filedocumented in this encounter Additional Health Concerns Infection Onset Date Last Indicated Resolved Time CoV-Risk 08/27/2024 08/27/2024 09/07/2024 1:24 AM EST RSV 08/27/2024 08/27/2024 09/03/2024 1:22 AM EST COVID-19 06/19/2025 06/19/2025 07/10/2025 7:06 PM EST documented as of this encounter Care Teams Advertising Account Executive Relationship Specialty Start Date End Date Jamal Landa MD [address] [place] [address] [place] [address] PCP - General Internal Medicine 09/30/19 documented as of this encounter Additional Source Comments The information contained in this document represents components of the legal health record. It is not the complete legal health record.[facility]
--- NOTE | 2025-07-28 12:44 | CA_ITS ---
Transthoracic Echocardiogram Patient (Last, First, Middle): Juan Diego Mao, Gender: M Date of : 1965 Age: 60 Procedure Date: 07/28/2025 Procedure Type: Transthoracic Echocardiogram Location: OP Height: 170.18 cm Weight: 82.1 kg BSA: 1.94 m2 Heart Rate: bpm BP: 120 / 80 mmHg Cloth Printing Back Tender: EMMANUEL Referring MD: Jamal Landa MD Symptoms: R06.09 - Other forms of dyspnea Study Quality: Adequate ECG Rhythm: Sinus Conclusions: - The left ventricular systolic function is normal. The visually estimated ejection fraction is between 55-60%. - No obvious valvular pathology seen on this study. - Small plaque is seen in the sino tubular ridge. Findings Left Ventricle Normal left ventricular cavity size. There is normal left ventricular wall thickness. The left ventricular systolic function is normal. The visually estimated ejection fraction is between 55-60%. There is no evidence of regional wall motion abnormalities. Diastolic function is normal for age. LV peak GLS -20.2%. Right Ventricle Normal right ventricular cavity size and systolic function. Atria Both atria are normal in size. Aortic Valve There is a normal trileaflet aortic valve. There is no aortic valve stenosis. There is no aortic valve regurgitation. Mitral Valve The mitral valve appears normal. There is no mitral valve regurgitation. There is no mitral valve stenosis. Pulmonic Valve The pulmonic valve is likely normal. Tricuspid Valve Normal tricuspid valve structure. There is trace tricuspid valve regurgitation. There is no evidence of pulmonary hypertension. Great Vessels The asc aorta and aortic arch are normal in size. Small plaque is seen in the sino tubular ridge. Venous The inferior vena cava is normal in size and collapses greater than 50% with inspiration. Pericardium/Pleural There is no evidence of pericardial effusion. Prior Study Comparison No prior study available for comparison. Recommendations, Care & Conclusions No obvious valvular pathology seen on this study. Measurements 2D Linear Measurements IVSd: 0.81 0.6-0.9/0.6-1.0 cm LVIDd: 5.28 3.9-5.3/4.2-5.9 cm LVIDd Index: 2.72 2.4-3.2/2.2-3.1 cm/m2 LVIDs: 3.50 2.0-3.6 cm LVPWd: 0.99 0.7-1.1 cm LA Diam: 3.70 2.7-3.8/3.0-4.0 cm LAIDs Index: 1.91 1.5-2.3 cm/m2 LV Mass: 216.63 67-162/88-224 g LV Mass Index: 111.67 43-95/49-115 g/m2 LVOT Diam: 1.90 3.0+(-)1.3 cm 2D Systolic Function EF 4C: 57.80 >55% EF 2C: 63.40 >55% EF BiP: 61.20 >55% Mitral Valve MV Pk E: 0.81 MV PK A: 0.71 MV Decel Time: 200.00 E/A: 1.10 E'Lateral: 10.00 E'Medial: 9.03 E/E' Med: 8.90 E/E' Lat: 8.10 PHT: 59.00 MVA PHT: 3.73 Decel Tipton: 4.02 Aortic Valve AoV Pk Pete: 1.64 AoV Mn Pete: 1.06 AoV VTI: 0.38 AoV Pk Grad: 11.00 Aov Mn Grad: 5.00 FIORELLA Cont.VTI: 1.97 LVOT LVOT Pk Pete: 1.23 LVOT Mn Pete: 0.86 LVOT VTI: 0.26 LVOT Pk Grad: 6.00 LVOT Mn Grad: 3.00 LVOT Diam: 1.90 LVOT Area: 2.84 Diastolic Function MV Pk E: 0.81 MV Pk A: 0.71 E/A: 1.10 E'Medial: 9.03 E/E' Med: 8.90 E' Laterial: 10.00 E/E' Lat: 8.10 Right Ventricle TAPSE (mm): 20.00 TVS' Pete: 11.60 Tricuspid Valve TR Pk Pete: 2.04 TR Pk Grad: 17.00 RA Press: 3.00 RVSP: 20.00 Great Vessels Aorta Sinus of Valsalva: 4.16 2.0-3.[address] Ridge: 2.51 1.7-3.4 cm Ao Asc: 3.20 2.1-3.4 cm Ao Arch: 3.00 Pulmonary Veins Pulm Vein S/D 1.30 Updated in Other Vendor System with Status of Final Zhou Blackburn MD electronically signed on 07/30/2025 12:43:54 PM with status of Final
--- OUTSIDE RECORDS SUMMARY | 2025-07-28 14:55 | XMS_ITS | Clinical Summary ---
Author Organization [facility] Address [address] [place] [address] Phone Care Team Providers Care Safe And Vault Service Mechanic Name Role Phone Jamal Landa MD Primary Care Provider [phone] [phone] Allergies Active Allergy Reactions Criticality Noted Date [...] mouth daily. Indications: gastroesophageal reflux disease Active Active Problems Problem Noted Date Diagnosed Date Sensorineural hearing loss (SNHL) of right ear 1 10/07/2023 Encounters Date Type Department Care Team Description 06/19/2025 9:50 AM EDT Office Visit [facility] [address] [address] Negro Toure PA-C Respiratory tract infection due to COVID-19 virus (Primary Dx) from Last 3 Months Social History Tobacco Use Types Packs/Day Years [...] Sign Reading Time Taken Comments Blood Pressure 122/87 06/19/2025 9:45 AM EDT Pulse 95 06/19/2025 9:45 AM EDT Temperature 37.3 C (99.2 F) 06/19/2025 9:45 AM EDT Respiratory Rate 18 06/19/2025 9:45 AM EDT Oxygen Saturation 100% 06/19/2025 9:4 5 AM EDT Inhaled Oxygen Concentration - - Weight 81.6 kg (180 lb) 06/19/2025 9:45 AM EDT patient reported Height 167.6 cm (5' 6 ) 06/19/2025 9:45 AM EDT patient reported Body Mass Index 29.05 06/19/2025 9:45 AM EDT Plan of Treatment Health Maintenance Due Date Last Done Comments Adult Td,Tdap Booster 1965 LIPID PANEL 1965 DEPRESSION SCREENING 1978 HEPATITIS C SCREENING 02/21/1984 HIV ONE-TIME SCREENING (18-65 YEARS) 02/21/1984 SCREENING FOR DIABETES 2001 COLOGUARD 2011 FIT TEST 2011 FOBT 2011 SIGMOIDOSCOPY 2011 VIRTUAL COLONOSCOPY 2011 PNEUMOCOCCAL VACCINES (50+ years) (1 of 1 - PCV) 02/21/2016 ZOSTER VACCINES (1 of 2) 02/21/2016 INFLUENZA VACCINE (#1) 2025 , 07/03/2021, 05/19/2020, Additional history exists COVID-19 VACCINE (3 - season) 2025 12/04/2020, 11/13/2020 COLONOSCOPY 01/23/2026 01/23/2023 COLORECTAL CANCER SCREENING 01/23/2026 RSV VACCINE (1 - 1-dose 75+ series) 2041 SMOKING STATUS SCREENING (Once After 26 Yrs) Completed 06/19/2025 HEPATITIS A VACCINES Aged Out No long [...] this topic Medical Devices Not on file Procedures Procedure Name Priority Date/Time Associated Diagnosis Comments POCT COVID-19 RT-PCR/INFLUENZA A & B/RSV CEPHEID Routine 06/19/2025 9:50 AM EDT POCT RAPID STREP A Routine 06/19/2025 9: 50 AM EDT HM COLONOSCOPY FOR RESULT ENTRY ONLY Routine 01/23/2023 from Last 3 Months or Most Recently Relevant to Health Maintenance Results * (ABNORMAL) POCT COVID-19 RT-PCR/Influenza A & B/RSV (Cepheid) (06/19/2025 9:50 AM EDT) [facility] RSV PCR Negative Negative [facility] SARS-CoV-2 (COVID-19) Positive(A) Negative [facility] POC Influenza A PCR Negative Negative [facility] Influenza B PCR Negative Negative [facility] 06/19/2025 9:50 AM EDT 06/19/2025 10:30 AM EDT us Negro Toure PA-C LAB POCT ENTER/EDIT DIYA CORDOVA Final Result [facility] [address] [address], [facility] [phone] * POCT Rapid Strep A (06/19/2025 9:50 AM EDT) Strep A, PCR Not Detected Not Detected [facility] 06/19/2025 9:50 AM EDT 06/19/2025 10:19 AM EDT Negro Toure PA-C LAB POCT ENTER/EDIT DIYA CORDOVA Final Result [facility] [address] [address], [facility] [phone] * COLONOSCOPY FOR RESULT ENTRY ONLY (01/23/2023) Colonoscopy External Historical Provider MD HEALTH MAINTENANCE Final Result from Last 3 Months or Most Recently Relevant to Health Maintenance Insurance [employer] [facility] [employer] [facility] Care Teams Safe And Vault Service Mechanic Relationship Specialty Start Date End Date Jamal Landa MD [address] [place] [address] Dr Valeria [place] [phone] PCP - General Internal Medicine 09/30/19 Additional Source Comments The information contained in this document represents components of the legal health record. It is not the complete legal health record.[facility]
--- OUTSIDE RECORDS SUMMARY | 2025-07-28 14:55 | XMS_ITS | Data Portability ---
Author Organization [place] [facility], Allergy Address [address] [address] Care Team Providers Care Parachute Cushion Installer Name Role Phone BEVERLEY RAMIREZ Primary Care [...] if his insurance company allows for that. Not available 10/22/2024 11:34:05 12/15/2024 12/15/2024 Patient [...] CT, temporal bone, w/o contrast 2024 025 [email or web address] Not available 10/23/2024 09:39:12 Medication Orders None recorded. Patient TargetsNo targets recorded. Patient InstructionsNo instructions recorded. Reason for Referral None Reported. Results Created Date Observation Date Name Description Value Unit Range Abnormal Flag Note LastModifiedBy Organization Detail LastModifiedTime 01/01/2012/15/2024 CT, tempo ral bone, w/o contr ast No observ ation record ed. [email or web address] [facility] [address] [facility] 100, [place], [address], 01/01/2025 14:57:14 Result Notes None recorded. 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 6155097899861 7 Active 2023 JORGE ALBERTO SHERMAN , AUD [address] [address], [place], [address], [facility] [place] 4 14:27:08 Marginal perforation of left tympanic membrane 7039926798972 106 Active 2023 JACOB CRAVEN MD 100 [facility],[address] [facility], [place], [address], [facility] [place] 4 15:12:48 Adhesive otitis media of left middle ear 2947700341827 102 Active 2023 JACOB CRAVEN MD 100 [facility],[address], [place], [address], [facility] [place] 4 15:12:55 Postmastoid ectomy complicatio n 02252456 Active 2023 JACOB CRAVEN MD 100 [facility],[address], [place], [address], [facility] - [facility] 4 15:17:39 Problem Notes None recorded. Procedures Surgical History Date Name Laterality Status Provider Name and Address Organization Details Recorded Time 5 CT temporal bones - Xoran completed JACOB CRAVEN MD 100 [facility],[address], [address], [facility] - [facility] 12/15/2024 08:45:21 5 Debridement of Mastoid Cavity left completed JACOB CRAVEN MD 100 [facility],[address], [address], [facility] - [facility] 10/22/2024 11:23:49 4 Comp Audio with Tymps - 31870 & 29276 completed ALEXIS MONROY 100 [facility],[address], [address], [facility] - [facility] [place] 08/06/2024 14:26:36 4 Debridement of Mastoid Cavity complex left completed JACOB CRAVEN MD 100 [facility],[address], [address], [facility] - [facility] 08/06/2024 15:07:49 Imaging Results None recorded. [...] Details Last Updated DateTime 10/22/2024 167.64 cm 42586.7 g Daksha Oshea [place] [facility] 10/22/2024 10:51:36 Date Recorded Body height Body mass index (BMI) Body weight Provider Name and Address Organization Details Last Updated DateTime 12/15/2024 167.64 cm 27.4 kg/m2 17905.7 g Daksha Oshea [facility] 12/15/2024 08:22:02 Social History None recorded. [...] Disorder N Anesthesia Complications N Heart Attack (OK) N Other Skin Condition N Diabetes N Rhinitis N Bleeding Disorder N Food Allergy N Arthritis N Hearing Loss Y Hyperlipidemia N Cancer N Stroke N Dementia N Nasal polyps N Asthma Y High Cholesterol Y Sleep Disorder N GERD/Reflux Y Liver Disease N Headaches Y Fibromyalgia N Hypertension N Speech Delay N Kidney Disease N Past Encounters Encounter ID Performer Location Encounter Start Date Encounter Closed Date Diagnosis/Indication Diagnosis SNOMED-CT Code Diagnosis ICD10 Code Diagnosis IMO Codes Diagnosis Note [id number] JACOB CRAVEN MD [facility] [address] [place] [address] 08/06/2024 13:37:31 08/06/2024 15:14:54 Sensorineural hearing loss in right ear 0850978367 9100 H90.A21 Minimal right sided sensorineu ral hearing loss Mixed cond uctive and sensorineural hearing loss of left ear 9988121616 9107 H90.A32 Audiologic al evaluation results:Ri ght [...] Marginal p erforation of left tympanic membrane 9885524994 354725 H72.2X2 Small long-term perforatio n present, no need for interventi on in this regard. 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 Purchased? yes Ordered:Azeem onak Infinio [id number] Power rec #1LImpress ion taken without incident. Dr. Sampson did a great job packing. I need to get prior authorizat ion from [facility] and then I will call him to schedule his [place]. [id number] JACOB CRAVEN MD [facility] [address] [address] 10/22/2024 10:43:07 10/22/2024 11:32:43 Postmastoidectomy complication 88582878 H95.192 Mixed cond uctive and sensorineural hearing loss of left ear 9645853194 9107 H90.A32 Patient will be following up with audiology for hearing aid for the left ear. Marginal p erforation of left tympanic membrane 2865721686 764471 H72.2X2 Small long-term perforatio n present, no need for interventi on in this regard. Adhesive o titis media of left middle ear 7248177848 834028 H74.12 Sensorineu ral hearing loss in right ear 6038409675 9100 H90.A21 Minimal right sided sensorineu ral hearing loss [id number] ALEXIS MONROY [place] [address] [place] [address] [place] [address] 11/17/2024 15:48:07 11/23/2024 13:43:35 Mixed conductive and sensorineural hearing loss of left ear 5214923865 9107 H90.A32 Hearing Aid Orientatio n Manufactur er: Phonak Infinio 90 SphereColo r: Sand beigeEarpi iesha: Power c-shell Serial NumbersRig ht: NALeft: [id number] Warranty: 12/04/2027 Accessorie s: ChargerGo SHEA sph Real ear: audio direct done Reviewed:radha clay controlNot paired to phone Follow up 2-3 weeks.Miracle ent knows to call with any major problems. [id number] JACOB CRAVEN MD [facility] [address] [address] 12/15/2024 08:14:48 12/15/2024 09:03:17 Postmastoidectomy complication 87253257 H95.192 Marginal p erforation of left tympanic membrane 2489613821 316545 H72.2X2 Small long-term perforatio n present, no need for interventi on in this regard. Mixed cond uctive and sensorineural hearing loss of left ear 3379650683 9107 H90.A32 Patient will be following up with audiology for hearing aid for the left ear. [id number] JORGE ALBERTO SHERMAN [place]IS [facility] [place] 100 [facility], ite [address] [place] [address] 12/15/2024 08:14:48 12/15/2024 09:03:17 Mixed conductive and sensorineural hearing loss of left ear 6553325136 9107 H90.A32 Hearing Aid Orientatio n Manufactur er: Phonak Infinio 90 SphereColo r: Sand beigeEarpi iesha: Power c-shell Serial NumbersRig ht: NALeft: [id number] Warranty: 12/04/2027 Accessorie s: ChargerGo SHEA sph [...] Lake Member ID Guarantor Name 06/14/[address] [facility]: [employer] [id number] Juan Diego Mao [id number] Juan Diego Mao Notes Date Note Type [...] for the ear. JACOB CRAVEN MD 100 [facility],[address], [address], [facility] 10/22/2024 11:35:19 12/15/2024 text/html Patient with [...] the tegmen tympani. JACOB CRAVEN MD 100 [facility] 100, [place], [address], [facility] - [facility] 12/15/2024 09:05:39
--- OUTSIDE RECORDS SUMMARY | 2025-07-28 14:55 | XMS_ITS | Encounter Summary ---
Author Organization [facility] Address [address] [place] [address] Phone Care Team Providers Care Solar Engineer Name Role Phone Jamal Landa MD Primary Care Provider [phone] Encounter Details Date Type Department Care Team (Late st Contact Info) Description 02/22/2020 Procedure Pass [facility] Admitting Dept Virtual Department [address] [place] [address] Social History Tobacco Use Types Packs/Day Years [...] documented as of this encounter Care Teams Solar Engineer Relationship Specialty Start Date End Date Jamal Landa MD [address] [place] [address] [place] [address] PCP - General Internal Medicine 09/30/19 documented as of this encounter Additional Source Comments The information contained in this document represents components of the legal health record. It is not the complete legal health record.[facility]
== END ==
LOC: HO.CARD 12:41
PROVIDERS: PCP Internal Medicine; Visit Provider Internal Medicine
DX: R00.2 Palpitations (principal); R06.09 Other forms of dyspnea
CPT/HCPCS: 93242; 93306

== ENCOUNTER → 2025-07-28 12:44 | Outpatient (BNV) | payer BC, SELFPAY | PROVIDERS: PCP Internal Medicine; Visit Provider Internal Medicine | DX: I70.0 Atherosclerosis of aorta (principal); R06.02 Shortness of breath | CPT/HCPCS: 93306; 93356 ==